=== PATIENT | male | born 1950 | race Caucasian/White ===

== ENCOUNTER 2016-05-23 22:03 | Observation (INO) | payer MEDICARE ==
[2016-05-23] MEDS ORDERED: ONDANSETRON 4 MG/2 ML VIAL IVP STA (23:39)
[2016-05-23] MEDS ORDERED: SODIUM CHLORIDE 0.9% 500 ML IV STA (23:39)
[2016-05-23] MEDS ORDERED: HYDROmorphone 1 MG/ML 1 ML SYRINGE IVP STA ×2 (23:39→23:57)
[2016-05-23] MEDS ORDERED: SODIUM CHLORIDE 0.9% 1,000 ML IV STA (23:39)
--- NOTE | 2016-05-23 23:46 | ED ---
General Adult HPI - General Source: patient, family, RN notes reviewed Mode of arrival: ambulatory Limitations: no limitations <Ta Valdes - Last Filed: 05/24/16 01:03> <Denis Null - Last Filed: 05/24/16 03:20> - General Chief complaint: Abdominal Pain Stated complaint: back & abdominal pain Time Seen by Provider: 05/23/16 23:25 - History of Present Illness Initial comments: Chief complaint history of present illness a 66-year-old patient who is going through hormonal changes. This evening the patient developed discomfort from the left flank to the left lower quadrant abdominal ache. No nausea no vomiting she's had bowel movements and is able to urinate. Recently this patient was diagnosed and treated for prostate cancer she reports it was removed robotically the cancer reportedly did not spread outside. She Is Not Receiving Any Chemo or Radiation Therapy. Patient Denying Nausea or Vomiting Denies Ever Having Had Diverticulitis but She Has Had Kidney Stones in the past (Ta Valdes) - Related Data Home Medications Medication Instructions Recorded Confirmed Aspirin 81 mg PO DAILY 12/02/15 05/23/16 Cholecalciferol [Vitamin D3] 1,000 unit PO DAILY 12/02/15 05/23/16 Estrofem 2 mg PO DAILY 12/02/15 05/23/16 Multivitamins, Thera [Multivitamin] 1 tab PO DAILY 12/02/15 05/23/16 Spiractin 150 mg PO DAILY 12/02/15 05/23/16 Allergies Allergy/AdvReac Type Severity Reaction Status Date / Time No Known Allergies Allergy Verified 05/23/16 23:12 Review of Systems ROS Other: All systems not noted in ROS Statement are negative. <Ta Valdes - Last Filed: 05/24/16 01:03> ROS Other: All systems not noted in ROS Statement are negative. <Denis Null - Last Filed: 05/24/16 03:20> ROS Statement: Those systems with pertinent positive or pertinent negative responses have been documented in the HPI. Review of systems. No visual acuity changes she is hard of hearing no chest pain shortness of breath he has discomfort on the left flank that radiates toward the left lower quadrant area. No change in bowel habits no significant change in appetite no nausea no vomiting. No rash noted on exam. All systems were reviewed. Past medical problems significant for kidney stones 3 or 4 times in the past last time she passed was 5 years ago and this feels somewhat different. Surgeries include as noted above prostate surgery radical removal of the prostate 6 weeks ago because of prostate cancer. Patient is on hormone therapy while transitioning to a female. The patient's also had tonsillectomy when she was a baby. Patient's family history significant for father with prostate cancer mother and sister both breast cancers. Patient denies ALLERGIES nonsmoker nondrinker. (Ta Valdes) Past Medical History Additional Past Medical History / Comment(s): Hormone replacement therapy, Kidney stones History of Any Multi-Drug Resistant Organisms: None Reported Past Surgical History: Prostate Surgery, Tonsillectomy Additional Past Surgical History / Comment(s): prostate cancer-surgery April 11/2016, Past Anesthesia/Blood Transfusion Reactions: No Reported Reaction Past Psychological History: No Psychological Hx Reported Smoking Status: Never smoker Past Alcohol Use History: None Reported Past Drug Use History: None Reported - Past Family History Father Additional Family Medical History / Comment(s): Prostate Cancer <Ta Valdes - Last Filed: 05/24/16 01:03> General Exam Limitations: no limitations <Ta Valdes - Last Filed: 05/24/16 01:03> <Denis Null - Last Filed: 05/24/16 03:20> - General Exam Comments Initial Comments: General: The patient is awake and alert, mild to moderate distress causes discomfort that goes from the left flank toward the left mid to left lower abdomen. No other associated symptoms a problem ongoing for approximately 3 and half hours. Vital signs show temperature 98.2, pulse 101, respiratory rate 18, pulse ox 90 % room air, pressure 134/69. Eye: Pupils are equal, , extra-ocular movements are intact; there is normal conjunctiva bilaterally. No signs of icterus. Ears, nose, mouth and throat: There are moist mucous membranes . Neck: The neck is supple, there is no tenderness . Cardiovascular: There is a regular rate and rhythm. No murmur, rub or gallop is appreciated. Respiratory: Lungs are clear to auscultation, respirations are non-labored, breath sounds are equal. No wheezes, stridor, rales, or rhonchi. Gastrointestinal: Soft, non-distended, tender with deep palpation to the left lower quadrant. There is no rebound or guarding present. Complains of left flank discomfort special and laying down.. Bowel sounds are unremarkable. Back: Left flank discomfort when he lays down flat. Musculoskeletal: Normal ROM, no tenderness, There is no pedal edema. There is no calf tenderness or swelling. Neurological: No complaints of or evidence of any neuro deficits. Skin is warm and dry and no rashes or lesions are noted. No evidence of any rash though early shingles was discussed (Ta Valdes) Medical Decision Making - Lab Data Result diagrams: 05/24/16 00:10 05/24/16 00:10 <Ta Valdes - Last Filed: 05/24/16 01:03> - Lab Data Result diagrams: 05/24/16 00:10 05/24/16 00:10 <Denis Null - Last Filed: 05/24/16 03:20> - Medical Decision Making Medical decision making; patient's white count 13.8 hemoglobin 12.9 and hematocrit 38. Amylase and lipase within normal limits. Potassium is 5.1, BUN 24 creatinine 1.4 the GFR 51. Glucose 155. The patient's urine shows large leuk esterase, 154 reds, greater than 182 whites, and wbc's in clumps plus positive bacteria. The patient was started on Levaquin. X-ray of the pelvis was done and there appears to be a calcification just above the transverse process of L5 on the left side. Patient had CT the abdomen and pelvis confirm diagnosis and evaluate kidney. Final disposition by Dr. Null (Ta Valdes) - Lab Data Lab Results 05/24/16 05/24/16 05/24/16 Range/Units 00:10 00:10 00:10 WBC 13.8 H (3.8-10.6) k/uL RBC 4.11 L (4.30-5.90) m/uL Hgb 12.9 L (13.0-17.5) gm/dL Hct 38.5 L (39.0-53.0) % MCV 93.7 (80.0-100.0) fL MCH 31.4 (25.0-35.0) pg MCHC 33.5 (31.0-37.0) g/dL RDW 12.2 (11.5-15.5) % Plt Count 231 (150-450) k/uL Neutrophils % 85 % Lymphocytes % 7 % Monocytes % 5 % Eosinophils % 1 % Basophils % 1 % Neutrophils # 11.7 H (1.3-7.7) k/uL Lymphocytes # 1.0 (1.0-4.8) k/uL Monocytes # 0.7 (0-1.0) k/uL Eosinophils # 0.2 (0-0.7) k/uL Basophils # 0.1 (0-0.2) k/uL Sodium 136 L (137-145) mmol/L Potassium 5.1 (3.5-5.1) mmol/L Chloride 100 (98-107) mmol/L Carbon Dioxide 22 (22-30) mmol/L Anion Gap 14 mmol/L BUN 24 H (9-20) mg/dL Creatinine 1.40 H (0.66-1.25) mg/dL Est GFR (MDRD) Af Amer >60 (>60 ml/min/1.73 sqM) Est GFR (MDRD) Non-Af 51 (>60 ml/min/1.73 sqM) Glucose 155 H (74-99) mg/dL Plasma Lactic Acid Damion 1.0 (0.7-2.0) mmol/L Calcium 10.2 (8.4-10.2) mg/dL Total Bilirubin 0.4 (0.2-1.3) mg/dL AST 25 (17-59) U/L ALT 34 (21-72) U/L Alkaline Phosphatase 58 (38-126) U/L Total Protein 7.4 (6.3-8.2) g/dL Albumin 4.7 (3.5-5.0) g/dL Amylase 64 (30-110) U/L Lipase 116 (23-300) U/L Urine Color Urine Appearance (Clear) Urine pH (5.0-8.0) Ur Specific Crawford (1.001-1.035) Urine Protein (Negative) Urine Glucose (UA) (Negative) Urine Ketones (Negative) Urine Blood (Negative) Urine Nitrate (Negative) Urine Bilirubin (Negative) Urine Urobilinogen (<2.0) mg/dL Ur Leukocyte Esterase (Negative) Urine RBC (0-5) /hpf Urine WBC (0-5) /hpf Urine WBC Clumps (None) /hpf Urine Bacteria (None) /hpf Hyaline Casts (0-2) /lpf Urine Mucus (None) /hpf Urine Yeast (Budding) (None) /hpf 05/24/16 Range/Units 00:10 WBC (3.8-10.6) k/uL RBC (4.30-5.90) m/uL Hgb (13.0-17.5) gm/dL Hct (39.0-53.0) % MCV (80.0-100.0) fL MCH (25.0-35.0) pg MCHC (31.0-37.0) g/dL RDW (11.5-15.5) % Plt Count (150-450) k/uL Neutrophils % % Lymphocytes % % Monocytes % % Eosinophils % % Basophils % % Neutrophils # (1.3-7.7) k/uL Lymphocytes # (1.0-4.8) k/uL Monocytes # (0-1.0) k/uL Eosinophils # (0-0.7) k/uL Basophils # (0-0.2) k/uL Sodium (137-145) mmol/L Potassium (3.5-5.1) mmol/L Chloride (98-107) mmol/L Carbon Dioxide (22-30) mmol/L Anion Gap mmol/L BUN (9-20) mg/dL Creatinine (0.66-1.25) mg/dL Est GFR (MDRD) Af Amer (>60 ml/min/1.73 sqM) Est GFR (MDRD) Non-Af (>60 ml/min/1.73 sqM) Glucose (74-99) mg/dL Plasma Lactic Acid Damion (0.7-2.0) mmol/L Calcium (8.4-10.2) mg/dL Total Bilirubin (0.2-1.3) mg/dL AST (17-59) U/L ALT (21-72) U/L Alkaline Phosphatase (38-126) U/L Total Protein (6.3-8.2) g/dL Albumin (3.5-5.0) g/dL Amylase (30-110) U/L Lipase (23-300) U/L Urine Color Yellow Urine Appearance Turbid (Clear) Urine pH 5.5 (5.0-8.0) Ur Specific Crawford 1.019 (1.001-1.035) Urine Protein 2+ H (Negative) Urine Glucose (UA) Negative (Negative) Urine Ketones Trace H (Negative) Urine Blood Moderate H (Negative) Urine Nitrate Negative (Negative) Urine Bilirubin Negative (Negative) Urine Urobilinogen <2.0 (<2.0) mg/dL Ur Leukocyte Esterase Large H (Negative) Urine RBC 154 H (0-5) /hpf Urine WBC >182 H (0-5) /hpf Urine WBC Clumps Moderate H (None) /hpf Urine Bacteria Rare H (None) /hpf Hyaline Casts 22 H (0-2) /lpf Urine Mucus Occasional H (None) /hpf Urine Yeast (Budding) Moderate H (None) /hpf Disposition <Ta Valdes - Last Filed: 05/24/16 01:03> <Denis Null - Last Filed: 05/24/16 03:20> Clinical Impression: Abdominal pain, Ureterolithiasis, Urinary tract infection Disposition: ADMITTED IP TO THIS HOSP Condition: Fair
[2016-05-24] MEDS ORDERED: KETOROLAC 30 MG/ML 1 ML VIAL IVP STA (00:37)
[2016-05-24 00:42] LABS: Basophils # (A) 0.1 k/uL (0-0.2); Basophils % (A) 1 %; CH 32.7; CHCM 35.1; Eosinophils # (A) 0.2 k/uL (0-0.7); Eosinophils % (A) 1 %; HCT 38.5 % (39.0-53.0); HDW 2.57; HGB 12.9 gm/dL (13.0-17.5); Luc % (Auto) 1; Lymphocytes % (A) 7 %; MCH 31.4 pg (25.0-35.0); MCHC 33.5 g/dL (31.0-37.0); MCV 93.7 fL (80.0-100.0); Mean Platelet Volume 7.8; Monocytes # (A) 0.7 k/uL (0-1.0); Monocytes % (A) 5 %; Neutrophils # (A) 11.7 k/uL (1.3-7.7); Neutrophils % (A) 85 %; RBC 4.11 m/uL (4.30-5.90); RDW 12.2 % (11.5-15.5); WBC 13.8 k/uL (3.8-10.6); WBC (Perox) 14.68
[2016-05-24 00:48] LABS: Appearance,Urine Turbid (Clear); Bacteria,Urine Rare /hpf; Bilirubin,Urine Negative (Negative); Glucose,Urine (UA) Negative (Negative); Ketones,Urine Trace (Negative); Leukocyte Esterase,Urine Large (Negative); Mucus,Urine Occasional /hpf; Nitrite,Urine Negative (Negative); PH, Urine 5.5 (5.0-8.0); Particle Count 12972; Protein,Urine 2+ (Negative); RBC,Urine 154 /hpf (0-5); Specific Gravity,Urine 1.019 (1.001-1.035); UA Billing (MACRO vs. MICRO) MICRO; Urobilinogen,Urine <2.0 mg/dL (<2.0); WBC,Urine >182 /hpf (0-5)
[2016-05-24 00:54] LABS: ALT 34 U/L (21-72); AST 25 U/L (17-59); Alkaline Phosphatase 58 U/L (38-126); Amylase 64 U/L (30-110); Anion Gap 14 mmol/L; Blood Urea Nitrogen 24 mg/dL (9-20); Calcium 10.2 mg/dL (8.4-10.2); Carbon Dioxide 22 mmol/L (22-30); Chloride 100 mmol/L (98-107); Glucose 155 mg/dL (74-99); Non-African American GFR(MDRD) 51 (>60 ml/min/1.73 sqM); Potassium 5.1 mmol/L (3.5-5.1); Sodium 136 mmol/L (137-145); Total Bilirubin 0.4 mg/dL (0.2-1.3); Total Protein 7.4 g/dL (6.3-8.2)
[2016-05-24] MEDS ORDERED: LEVOFLOXACIN 500MG-D5W PMX 500 MG in DEXTROSE/WATER 1 100ML.BAG IVPB STA (01:03)
--- NOTE | 2016-05-24 02:41 | XR ---
EXAMINATION TYPE: XR abdomen 2V DATE OF EXAM: 05/24/2016 12:58 AM CLINICAL HISTORY: Left flank pain history of prostate carcinoma with surgery. TECHNIQUE: Supine, upright, and left side down lateral decubitus views of the abdomen are obtained. COMPARISON: 12/02/2015 FINDINGS: Scattered gas is seen in non-distended small bowel loops. Gas and fecal material is seen in non-distended colon. There is no visceromegaly, pneumoperitoneum, or abnormal calcification appr eciated. The lung bases are clear and the osseous structures are intact. A catheter is noted superimposing the left abdomen. IMPRESSION: Overall nonobstructive bowel gas pattern. No significant change.
[2016-05-24] MEDS ORDERED: ONDANSETRON 4 MG/2 ML VIAL IVP PRN (03:20)
[2016-05-24] MEDS ORDERED: HYDROmorphone 1 MG/ML 1 ML SYRINGE IV PRN (03:20)
[2016-05-24] MEDS ORDERED: NALOXONE 0.4 MG/ML 1 ML VIAL IV PRN (03:20)
[2016-05-24] MEDS ORDERED: HYDROcodone/APAP 5-325MG 1 EACH TAB PO PRN (03:20)
[2016-05-24] MEDS ORDERED: LEVOFLOXACIN 750MG-D5W PMX 750 MG in DEXTROSE/WATER 1 150ML.BAG IVPB STA (03:25)
[2016-05-24] MEDS ORDERED: SODIUM CHLORIDE 0.9% 1,000 ML IV SCH (03:30)
--- NOTE | 2016-05-24 03:57 | CT ---
EXAMINATION TYPE: CT abdomen pelvis wo con DATE OF EXAM: 05/24/2016 2:08 AM COMPARISON: NONE HISTORY: left flank pain, hx of prostate ca and surgery recently CT DLP: 376.50 mGycm Automated exposure control for dose reduction was used. TECHNIQUE: Helical acquisition of images was performed from the lung bases through the pelvis. No IV or oral contrast was given. FINDINGS: LUNG BASES: No significant abnormality is appreciated. LIVER/GB: No significant abnormality is appreciated. PANCREAS: No significant abnormality is seen. SPLEEN: No significant abnormality is seen. ADRENALS: No significant abnormality is seen. KIDNEYS: There is suggestion of tiny nonobstructing stones in the right kidney. No hydronephrosis is noted on the right side. Left kidney showed mild left hydronephrosis with obstructing 5 mm opaque stone in the mid left ureter at the level of L4-L5 disc space in the axial image 84 and coronal image 47.. RETROPERITONEAL ADENOPATHY: None visualized REPRODUCTIVE ORGANS: Possible postsurgical changes in the prostate gland. URINARY BLADDER: No significant abnormality is seen. PELVIC ADENOPATHY: None visualized. OSSEOUS STRUCTURES: Mild degenerative arthritic changes are noted in the thoracal lumbar spine. BOWEL: Colonic diverticulosis is noted without significant acute diverticulitis. Visualized appendix appears grossly unremarkable. OTHER: There is suggestion of postsurgical changes in the anterior pelvic and abdominal wall as seen in the axial image 97. Small fat-containing left inguinal hernia is noted. IMPRESSION: 1. THERE IS 5 MM OBSTRUCTING STONE IN THE MID LEFT URETER AT THE LEVEL OF L4-L5 WITH MILD LEFT HYDRON EPHROSIS. 2. MILD COLONIC DIVERTICULOSIS. 3. POSTSURGICAL CHANGES IN THE ABDOMEN AND PELVIS PROBABLY RELATED TO PROSTATE GLAND.
[2016-05-24 04:50] VITALS: PULSE 94; RESP 16; BMI 26.9
[2016-05-24 07:43] VITALS: BP 122/68; TEMP 97.6
[2016-05-24] MEDS ORDERED: TAMSULOSIN 0.4 MG CAP.ER.24H PO STA (07:43)
--- NOTE | 2016-05-24 08:27 | HP ---
DATE OF ADMISSION: 05/24/2016 ADMITTING DIAGNOSIS: Left ureteral calculus. Patient is 66-year-old male admitted through the emergency room for treatment of severe left flank pain. Patient's pain began approximately 7:30 on 05/23. It was located in the left flank with radiation to the left lower quadrant. It was associated with nausea and vomiting. The patient rated the pain as a 9/10. He presented to the emergency room for evaluation and a CT scan of the abdomen and pelvis identified a 4.5 to 5 mm diameter partially obstructive calculus in the left ureter at approximately the L4 level. His white blood count was 13,800. BUN 24 and creatinine 1.40. Urinalysis showed greater than 182 white cells, 150 were red cells, but showed only rare bacteria and was negative for nitrite. Due to the persistence of the patient's pain which in the emergency room was tolerable only with Dilaudid, it was elected to admit him for pain control. Patient has a history of urolithiasis and first passed a stone approximately 20 years ago. He said the last time he passed a stone was 10 years ago. All his previous stones have passed spontaneously. Patient's only urinary tract infection in the past occurred following transrectal needle biopsy of the prostate last fall. Patient was discovered to have prostate cancer in 11/2015 and underwent robot-assisted laparoscopic prostatectomy [facility] in early April. He says he has been doing very well since then. He is voiding every 2 to 3 hours during the day and twice at night. He does have some stress incontinence and he currently uses 1 pad daily. 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 He also takes aspirin and vitamin D3. He has no allergies. His only surgery in the past other than radical prostatectomy was tonsillectomy. There is no history of hypertension, diabetes, rheumatic fever, tuberculosis or hepatitis. REVIEW OF SYSTEMS: No history of seizures, asthma, shortness of breath with exertion, palpitations, heart murmur, or rectal bleeding. SOCIAL HISTORY: Patient is a nonsmoker and is . Physical exam reveals a 66-year-old male-appearing individual. Blood pressure 132/75, afebrile. HEENT: No supraclavicular or cervical adenopathy. ABDOMEN: Soft - no hepatosplenomegaly. No flank pain at the present time. GENITALIA: Both testicles are descended. No hernia is noted. IMPRESSION: Left flank pain - secondary to a 5 mm mid left ureteral calculus. The patient says his pain has improved since he was given Toradol early this morning. He currently rates his pain as a 2/10. PLAN: Patient will be started on tamsulosin. If his pain remains minimal, he will be discharged later today in hopes that he will be able to pass his stone spontaneously as an outpatient. PAIGE
[2016-05-24] MEDS ORDERED: ASPIRIN 81 MG CHEW PO SCH (09:00)
[2016-05-24] MEDS ORDERED: CHOLECALCIFEROL 1,000 UNIT TAB PO SCH (09:00)
[2016-05-24] MEDS ORDERED: ESTRADIOL 2 MG PO SCH (09:00)
[2016-05-24] MEDS ORDERED: MULTIVITAMINS, THERA 1 EACH TAB PO SCH (09:00)
[2016-05-24] MEDS ORDERED: [UNRECOGNIZED DRUG - OTHER] PO SCH (09:00)
[2016-05-24] MEDS ORDERED: FAMOTIDINE 20 MG TAB PO SCH (09:00)
== END 2016-05-24 11:10 | disposition home or self-care (01) ==
LOC: EC 22:03 → 3SUR 05-24 03:20
PROVIDERS: ADMIT Urology; ATTEND Urology
DX: N20.1 Calculus of ureter (principal); N39.3 Stress incontinence (female) (male); Z85.46 Personal history of malignant neoplasm of prostate; Z79.82 Long term (current) use of aspirin; Z79.3 Long term (current) use of hormonal contraceptives; Z80.42 Family history of malignant neoplasm of prostate
CPT/HCPCS: 36415; 80053; 82150; 83605; 83690; 85025; 81001; 87086; 74020; 74176; 99285; 96365; 96375 ×3; 96361 ×3; G0378; J2405; J1956; J1885; J1170

== ENCOUNTER 2016-05-26 22:32 | Inpatient (IN) | payer MEDICARE ==
[2016-05-26] MEDS ORDERED: SODIUM CHLORIDE 0.9% 2,000 ML IV STA (23:06)
[2016-05-26] MEDS ORDERED: SODIUM CHLORIDE 0.9% 1,000 ML IV STA (23:06)
[2016-05-26] MEDS ORDERED: ACETAMINOPHEN TAB 325 MG TAB PO STA (23:26)
[2016-05-26 23:28] LABS: Basophils % (A) 0 %; CH 32.5; CHCM 35.2; Eosinophils # (A) 0.1 k/uL (0-0.7); Eosinophils % (A) 0 %; HCT 35.2 % (39.0-53.0); HDW 2.47; HGB 12.2 gm/dL (13.0-17.5); Luc # (Auto) 0.09; Luc % (Auto) 1; Lymphocytes # (A) 0.5 k/uL (1.0-4.8); Lymphocytes % (A) 4 %; MCHC 34.5 g/dL (31.0-37.0); MCV 92.6 fL (80.0-100.0); Mean Platelet Volume 7.6; Monocytes # (A) 0.8 k/uL (0-1.0); Monocytes % (A) 7 %; Neutrophils # (A) 10.2 k/uL (1.3-7.7); Neutrophils % (A) 88 %; WBC 11.6 k/uL (3.8-10.6); WBC (Perox) 11.92
[2016-05-26 23:38] LABS: INR 1.2 (<1.1); Partial Thromboplastin Time 27.6 sec (22.0-30.0); Prothrombin Time 11.6 sec (9.0-12.0)
[2016-05-26 23:39] LABS: Calcium 9.7 mg/dL (8.4-10.2); Magnesium 1.9 mg/dL (1.6-2.3); Total Bilirubin 0.7 mg/dL (0.2-1.3)
--- NOTE | 2016-05-26 23:59 | XR ---
EXAMINATION TYPE: XR KUB DATE OF EXAM: 05/26/2016 11:37 PM CLINICAL HISTORY: Left flank pain, history of stones. TECHNIQUE: Single supine KUB image of the abdomen is obtained. COMPARISON: 05/24/[address] scan of abdomen and pelvis 05/24/2016. FINDINGS: Mild gaseous distention of bowel loops is noted in the abdomen with multiple air-fluid levels and is suggestion of mild ileus. There is no visceromegaly, pneumoperitoneum, or abnormal calcification appreciated. The lung bases are clear and the osseous structures are intact. Previously described 5 mm obstructing stone in the mid left ureter on the CT scan is not well demonst rated in this radiograph. IMPRESSION: 1. Suggestion of mild ileus in the abdomen. 2. No significant bowel obstruction. 3. Previously demonstrated 5 mm obstructing stone on the CT scan is not well demonstrated in this rad iograph.
--- NOTE | 2016-05-27 00:36 | US ---
EXAMINATION TYPE: US renals and bladder DATE OF EXAM: 05/26/2016 11:59 PM COMPARISON: CT 2 days prior CLINICAL HISTORY: Left flank pain. Concern for septic stone. EXAM MEASUREMENTS: Right Kidney: 9.8 x 4.7 x 4.3 cm Left Kidney: 10.2 x 5.6 x 5.4 cm TECHNOLOGIST IMPRESSION: wnl Right Kidney: Lower pole cyst measuring 2.4 x 2.7 x 2.5cm, 2 echogenic foci seen probable stones hyacinth uring 1.) 0.5 x 0.5 x 0.5cm 2.) 0.5 x 0.3 x 0.7cm Left Kidney: mild hydro, echogenic foci, probable stone measuring 0.3 x 0.3 x 0.2cm Bladder: Not fully distended IMPRESSION: 1. There is mild left-sided hydronephrosis. Patient probably has persistent obstructing left kidney/u reter stone since previous CT 05/24/2016. A clinical correlation and follow-up is recommended.. 2. Benign-appearing cyst in the right kidney. 3. Possible tiny bilateral nonobstructing stones. 4. Limited evaluation of nondistended urinary bladder.
[2016-05-27] MEDS ORDERED: cefTRIAXone 2,000 MG in SODIUM CHLORIDE 0.9% 100 ML IVPB STA (00:47)
[2016-05-27] MEDS ORDERED: GENTAMICIN 110 MG in SODIUM CHLORIDE 0.9% 100 ML IVPB ONE (00:47)
[2016-05-27 00:51] LABS: Appearance,Urine Clear (Clear); Bilirubin,Urine Negative (Negative); Glucose,Urine (UA) Negative (Negative); Ketones,Urine 2+ (Negative); Leukocyte Esterase,Urine Large (Negative); Mucus,Urine Rare /hpf; Nitrite,Urine Negative (Negative); Particle Count 3458; Protein,Urine Negative (Negative); RBC,Urine 20 /hpf (0-5); Specific Gravity,Urine 1.006 (1.001-1.035); Squamous Epithelial Cell,Urine <1 /hpf (0-4); UA Billing (MACRO vs. MICRO) MICRO; Urobilinogen,Urine <2.0 mg/dL (<2.0); WBC,Urine 73 /hpf (0-5)
[2016-05-27] MEDS ORDERED: NALOXONE 0.4 MG/ML 1 ML VIAL IV PRN (01:05)
[2016-05-27] MEDS ORDERED: ACETAMINOPHEN TAB 325 MG TAB PO PRN (01:05)
--- NOTE | 2016-05-27 01:05 | ED ---
General Adult HPI - General Chief complaint: Abdominal Pain Stated complaint: kidney stone Time Seen by Provider: 05/26/16 22:52 Source: patient Mode of arrival: ambulatory Limitations: no limitations - History of Present Illness Initial comments: The patient is a 66-year-old male who presents to ED with a chief complaint of left-sided flank pain, fever. Patient states that the symptoms of the present over the course of the past 24 hours. Patient states that he was admitted on May 22 for a left-sided ureteral stone. Patient was treated with pain control medications at that point in time and discharged home. He notes that he had improvement of his pain until yesterday. Patient also notes that he's been having a bloated sensation throughout his abdomen. He has tried taking Dulcolax suppository without improvement of the symptoms. Patient does note that he's felt very bloated overall. The patient has a hx of multiple episodes of ureterolithiasis stretching over the past 20 years. He follows with Dr[address] Martinez as his Urologist. Severity scale (1-10): 0 - Related Data Home Medications Medication Instructions Recorded Confirmed Aspirin 81 mg PO DAILY 12/02/15 05/26/16 Cholecalciferol [Vitamin D3] 1,000 unit PO DAILY 12/02/15 05/26/16 Estradiol [Estradiol] 4 mg PO QAM 05/24/16 05/26/16 Multivit-Min/Fe Fum/FA/Vit K 1 cap PO DAILY 05/24/16 05/26/16 [Women's Multivatimin] Spironolactone [Spironolactone] 50 mg PO HS 05/24/16 05/26/16 Spironolactone [Spironolactone] 100 mg PO QAM 05/24/16 05/26/16 Previous Rx's Medication Instructions Recorded Hydrocodone/Acetaminophen [[place] 1 - 2 each PO Q4HR PRN #30 tab 05/24/16 5-325] Ketorolac [Toradol] 10 mg PO Q6HR PRN #20 tab 05/24/16 Tamsulosin [Flomax] 0.4 mg PO DAILY #30 cap 05/24/16 Allergies Allergy/AdvReac Type Severity Reaction Status Date / Time No Known Allergies Allergy Verified 05/26/16 22:38 Review of Systems ROS Statement: Those systems with pertinent positive or pertinent negative responses have been documented in the HPI. ROS Other: All systems not noted in ROS Statement are negative. Constitutional: Reports: fever, chills. Denies: weakness ENT: Denies: ear pain, throat pain Respiratory: Denies: cough, dyspnea Cardiovascular: Denies: chest pain, palpitations Endocrine: Reports: fatigue Gastrointestinal: Reports: abdominal pain, nausea, constipation, other (Bloating ). Denies: vomiting, diarrhea Genitourinary: Reports: urgency, dysuria. Denies: frequency, hematuria Musculoskeletal: Denies: back pain Skin: Denies: rash Neurological: Denies: headache, weakness Psychiatric: Denies: anxiety, depression Past Medical History Additional Past Medical History / Comment(s): Hormone replacement therapy, Kidney stones History of Any Multi-Drug Resistant Organisms: None Reported Past Surgical History: Prostate Surgery, Tonsillectomy Additional Past Surgical History / Comment(s): prostate cancer-surgery April 11/2016, Past Anesthesia/Blood Transfusion Reactions: No Reported Reaction Past Psychological History: No Psychological Hx Reported Smoking Status: Never smoker Past Alcohol Use History: None Reported Past Drug Use History: None Reported - Past Family History Father Additional Family Medical History / Comment(s): Prostate Cancer General Exam Limitations: no limitations General appearance: alert, in no apparent distress Head exam: Present: atraumatic, normocephalic Eye exam: Present: normal appearance, other (Patient wears glasses) Pupils: Present: normal accommodation ENT exam: Present: normal exam, mucous membranes dry Neck exam: Present: normal inspection, full ROM Respiratory exam: Present: normal lung sounds bilaterally. Absent: respiratory distress, wheezes, rales, rhonchi, stridor Cardiovascular Exam: Present: normal rhythm, tachycardia, normal heart sounds GI/Abdominal exam: Present: soft, tenderness (left CVA). Absent: distended, guarding, rebound, rigid Extremities exam: Present: normal inspection, full ROM Back exam: Present: normal inspection Neurological exam: Present: alert, oriented X3 Psychiatric exam: Present: normal affect, normal mood Skin exam: Present: warm, dry, intact Course Vital Signs 05/26/16 05/26/16 05/26/16 22:38 23:08 23:24 Temperature 101.8 F H 98.9 F Pulse Rate 130 H Pulse Rate [ 111 H 98 Refuge Manager ] Respiratory 20 20 20 Rate Blood Pressure 124/75 Blood Pressure 125/70 129/69 [Sitting] O2 Sat by Pulse 98 97 Oximetry 05/27/16 05/27/16 05/27/16 00:00 00:24 01:31 Temperature 99.3 F Pulse Rate 96 91 Pulse Rate [ 95 Refuge Manager ] Respiratory 18 20 16 Rate Blood Pressure 121/58 114/56 Blood Pressure 122/67 [Sitting] O2 Sat by Pulse 96 97 98 Oximetry Medical Decision Making - Medical Decision Making The patient is a 66-year-old male who presents to ED with a chief complaint of left-sided flank pain. Patient also noted to have fever. Patient's temp of 101.8. Patient also noted be tachycardic upon arrival. Given recent diagnosis of left-sided ureteral stone, I'm obviously concerned for possibility of septic stone. Bolus patient with 2 L IV fluids. Check CBC, BMP, mag. Check lactic acid as well as blood cultures. Treat patient with broad-spectrum antibiotics including Rocephin and gentamicin. Given the patient has had recent CT, will check ultrasound renal as well as KUB. Patient does not require any pain medications at this point in time. 1:[address] Terry, who agrees with plan of admission with antibiotics. Updated patient of overall findings. He is amenable with plan of admission for further management of symptoms. HR noted to be improved overall - no longer tachycardic. Temp is also improved - no longer febrile. - Lab Data Result diagrams: 05/26/16 23:15 05/26/16 23:15 Lab Results 05/26/16 05/26/16 05/26/16 Range/Units 23:15 23:15 23:15 WBC 11.6 H (3.8-10.6) k/uL RBC 3.80 L (4.30-5.90) m/uL Hgb 12.2 L (13.0-17.5) gm/dL Hct 35.2 L (39.0-53.0) % MCV 92.6 (80.0-100.0) fL MCH 32.0 (25.0-35.0) pg MCHC 34.5 (31.0-37.0) g/dL RDW 12.0 (11.5-15.5) % Plt Count 208 (150-450) k/uL Neutrophils % 88 % Lymphocytes % 4 % Monocytes % 7 % Eosinophils % 0 % Basophils % 0 % Neutrophils # 10.2 H (1.3-7.7) k/uL Lymphocytes # 0.5 L (1.0-4.8) k/uL Monocytes # 0.8 (0-1.0) k/uL Eosinophils # 0.1 (0-0.7) k/uL Basophils # 0.0 (0-0.2) k/uL PT 11.6 (9.0-12.0) sec INR 1.2 (<1.1) APTT 27.6 (22.0-30.0) sec Sodium 135 L (137-145) mmol/L Potassium 5.0 (3.5-5.1) mmol/L Chloride 99 (98-107) mmol/L Carbon Dioxide 22 (22-30) mmol/L Anion Gap 14 mmol/L BUN 20 (9-20) mg/dL Creatinine 1.50 H (0.66-1.25) mg/dL Est GFR (MDRD) Af Amer 57 (>60 ml/min/1.73 sqM) Est GFR (MDRD) Non-Af 47 (>60 ml/min/1.73 sqM) Glucose 133 H (74-99) mg/dL Plasma Lactic Acid [place] (0.7-2.0) mmol/L Calcium 9.7 (8.4-10.2) mg/dL Magnesium 1.9 (1.6-2.3) mg/dL Total Bilirubin 0.7 (0.2-1.3) mg/dL AST 23 (17-59) U/L ALT 34 (21-72) U/L Alkaline Phosphatase 64 (38-126) U/L Total Protein 7.0 (6.3-8.2) g/dL Albumin 4.3 (3.5-5.0) g/dL Urine Color Urine Appearance (Clear) Urine pH (5.0-8.0) Ur Specific [place] (1.001-1.035) Urine Protein (Negative) Urine Glucose (UA) (Negative) Urine Ketones (Negative) Urine Blood (Negative) Urine Nitrate (Negative) Urine Bilirubin (Negative) Urine Urobilinogen (<2.0) mg/dL Ur Leukocyte Esterase (Negative) Urine RBC (0-5) /hpf Urine WBC (0-5) /hpf Urine WBC Clumps (None) /hpf Ur Squamous Epith Cells (0-4) /hpf Hyaline Casts (0-2) /lpf Urine Mucus (None) /hpf 05/26/16 05/27/16 Range/Units 23:15 00:38 WBC (3.8-10.6) k/uL RBC (4.30-5.90) m/uL Hgb (13.0-17.5) gm/dL Hct (39.0-53.0) % MCV (80.0-100.0) fL MCH (25.0-35.0) pg MCHC (31.0-37.0) g/dL RDW (11.5-15.5) % Plt Count (150-450) k/uL Neutrophils % % Lymphocytes % % Monocytes % % Eosinophils % % Basophils % % Neutrophils # (1.3-7.7) k/uL Lymphocytes # (1.0-4.8) k/uL Monocytes # (0-1.0) k/uL Eosinophils # (0-0.7) k/uL Basophils # (0-0.2) k/uL PT (9.0-12.0) sec INR (<1.1) APTT (22.0-30.0) sec Sodium (137-145) mmol/L Potassium (3.5-5.1) mmol/L Chloride (98-107) mmol/L Carbon Dioxide (22-30) mmol/L Anion Gap mmol/L BUN (9-20) mg/dL Creatinine (0.66-1.25) mg/dL Est GFR (MDRD) Af Amer (>60 ml/min/1.73 sqM) Est GFR (MDRD) Non-Af (>60 ml/min/1.73 sqM) Glucose (74-99) mg/dL Plasma Lactic Acid [place] 0.6 L (0.7-2.0) mmol/L Calcium (8.4-10.2) mg/dL Magnesium (1.6-2.3) mg/dL Total Bilirubin (0.2-1.3) mg/dL AST (17-59) U/L ALT (21-72) U/L Alkaline Phosphatase (38-126) U/L Total Protein (6.3-8.2) g/dL Albumin (3.5-5.0) g/dL Urine Color Yellow Urine Appearance Clear (Clear) Urine pH 5.0 (5.0-8.0) Ur Specific [place] 1.006 (1.001-1.035) Urine Protein Negative (Negative) Urine Glucose (UA) Negative (Negative) Urine Ketones 2+ H (Negative) Urine Blood Moderate H (Negative) Urine Nitrate Negative (Negative) Urine Bilirubin Negative (Negative) Urine Urobilinogen <2.0 (<2.0) mg/dL Ur Leukocyte Esterase Large H (Negative) Urine RBC 20 H (0-5) /hpf Urine WBC 73 H (0-5) /hpf Urine WBC Clumps Rare H (None) /hpf Ur Squamous Epith Cells <1 (0-4) /hpf Hyaline Casts 1 (0-2) /lpf Urine Mucus Rare H (None) /hpf Disposition Clinical Impression: Ureterolithiasis, UTI (urinary tract infection), Sepsis Disposition: ADMITTED IP TO THIS [facility] Condition: Good Referrals: Shameka Chaney DO [Primary Care Provider] - 1-2 days Time of Disposition: 01:03 Decision to Admit Reason: Admit from EC Decision Date: 05/27/16 Decision Time: 01:04
[2016-05-27] MEDS ORDERED: KETOROLAC 30 MG/ML 1 ML VIAL IVP PRN (02:30)
[2016-05-27] MEDS: MORPHINE SULFATE 2 MG/ML SYRINGE IVP PRN ×2 (02:38→05:43)
--- NOTE | 2016-05-27 09:22 | P.GSHP ---
History of Present Illness H&P Date: 05/27/16 The patient is a 66-year-old with a history of kidney stones. The patient was in the hospital [address] Martinez with a left ureteral calculus. The patient was discharged home only to return to the emergency room yesterday with more pain and fever and chills. The temperature last night was 101.8. And 102.3 this morning. THe urine is infected. The KUB shows a stone in the region of the mid ureter. With the infected urine, no lower urinary tract symptoms and the stone with hydronephrosis I will set the patient up for cystoscopy and placement of a double-J catheter to relieve the obstruction and drain the infected urine. - Constitutional Constitutional: Denies chills, Denies fever Past Medical History Additional Past Medical History / Comment(s): Hormone replacement therapy, Kidney stones History of Any Multi-Drug Resistant Organisms: None Reported Past Surgical History: Prostate Surgery, Tonsillectomy Additional Past Surgical History / Comment(s): prostate cancer-surgery April 11/2016, Past Anesthesia/Blood Transfusion Reactions: No Reported Reaction Past Psychological History: No Psychological Hx Reported Smoking Status: Never smoker Past Alcohol Use History: None Reported Past Drug Use History: None Reported - Past Family History Father Additional Family Medical History / Comment(s): Prostate Cancer Medications and Allergies Home Medications Medication Instructions Recorded Confirmed Type Aspirin 81 mg PO DAILY 12/02/15 05/26/16 History Cholecalciferol [Vitamin D3] 1,000 unit PO DAILY 12/02/15 05/26/16 History Estradiol [Estradiol] 4 mg PO QAM 05/24/16 05/26/16 History Multivit-Min/Fe Fum/FA/Vit K 1 cap PO DAILY 05/24/16 05/26/16 History [Women's Multivatimin] Spironolactone [Spironolactone] 50 mg PO HS 05/24/16 05/26/16 History Spironolactone [Spironolactone] 100 mg PO QAM 05/24/16 05/26/16 History Allergies Allergy/AdvReac Type Severity Reaction Status Date / Time No Known Allergies Allergy Verified 05/26/16 22:38 Surgical - Exam Vital Signs Temp Pulse Resp BP Pulse Ox 101.8 F H 130 H 20 124/75 98 05/26/16 22:38 05/26/16 22:38 05/26/16 22:38 05/26/16 22:38 05/26/16 22:38 - General well developed, well nourished, no distress - Eyes PERRL - ENT no hearing loss - Neck no masses - Respiratory normal expansion, normal respiratory effort - Cardiovascular Rhythm: regular - Abdomen Abdomen: soft, tender - Integumentary no rash, no growths - Neurologic normal coordination, normal sensation - Musculoskeletal normal posture - Psychiatric oriented to time, oriented to person, oriented to place Results - Labs 05/26/16 23:15 05/26/16 23:15 Assessment and Plan Plan: Impression: Left ureteral calculus with obstruction, urinary tract infection with sepsis, pyonephrosis. Recommendations this patient will have a double-J catheter placed this morning to relieve the obstruction and drain the infected urine. At a later date patient will be set up for cystoscopy ureteroscopy and stone manipulation.
[2016-05-27] MEDS ORDERED: fentaNYL (PF) 50 MCG/ML 2 ML AMP ONE (10:26)
[2016-05-27] MEDS ORDERED: MIDAZOLAM 2 MG/2 ML VIAL ONE (10:26)
[2016-05-27] MEDS ORDERED: LIDOCAINE 1% INJ 10MG/ML (20 ML MDV) ONE (10:26)
[2016-05-27] MEDS ORDERED: LACTATED RINGERS 1,000 ML IV ONE (10:26)
[2016-05-27] MEDS ORDERED: DEXAMETHASONE SOD PHOS (MDV) 100 MG/10 ML VIAL ONE (10:26)
[2016-05-27] MEDS ORDERED: SUCCINYLCHOLINE CHLORIDE 100 MG/5 ML SYR IV ONE (10:26)
[2016-05-27] MEDS ORDERED: PROPOFOL 10 MG/ML 20 ML VIAL IV ONE (10:26)
[2016-05-27] MEDS ORDERED: ONDANSETRON 4 MG/2 ML VIAL ONE (10:26)
[2016-05-27] MEDS ORDERED: HYDROcodone/APAP 5-325MG 1 EACH TAB PO PRN (11:12)
--- NOTE | 2016-05-27 11:19 | P.OP ---
Date of Procedure: 05/27/16 Preoperative Diagnosis: Left ureteral calculus, left ureteral obstruction with pyelonephrosis, urinary tract infection with sepsis Postoperative Diagnosis: Same Procedure(s) Performed: Cystoscopy, left ureteroscopy, placement of 626 double-J catheter Anesthesia: LUCÍA Surgeon: Ron Terry Estimated Blood Loss (ml): 0 Pathology: none sent Condition: stable Disposition: PACU Indications for Procedure: Patient is a 66-year-old individual with a history of ureteral stones. A 5 mm midureteral stone was recently identified. The patient was in the hospital for this and discharged home. The patient presented back to the emergency room last night with fever and chills. The stone was still present in the mid ureter with hydronephrosis. The patient still had fever this morning. Urine is infected. The patient comes for placement of a double-J catheter to relieve the obstruction and help with the treatment of the infected urine. Description of Procedure: The patient is brought to the operating suite and given a general anesthesia. The patient's placed lithotomy position with a sterile prep and drape. Cystoscopy a Foroblique lens and 22-Setswana sheath identifies a normal anterior urethra. The prostate is previously been removed surgically for prostate cancer. Upon entering the bladder there is edema and some of the stitches from the radical prostatectomy emanating from the bladder neck. The trigone is somewhat obscured due to this but after very careful and diligent search identified first the right and then the left ureteral orifice. The angle was extremely difficult and I cannot pass an 035 wire through the orifice with the cystoscope. I removed the cystoscope and passed the ureteroscope into the distal ureter. Fortunately I am able then to be able to pass an 035 wire up the ureter into the kidney. I removed the ureteroscope and backloaded the wire onto the cystoscope. Then over the wire I passed a 6 x 26 double-J catheter that coils in the renal pelvis and in the bladder. the bladder is drained and the cystoscope was removed. the patient is awakened and returned recovery room good condition. The patient will stay in the hospital overnight and then probably be discharged home tomorrow. The patient will have a formal ureteroscopy and stone removal at a later date.
--- NOTE | 2016-05-27 11:34 | FL ---
Fluoroscopy INDICATION: Pain FINDINGS: Fluoroscopy time: 28 seconds. Images obtained: 1. IMPRESSIONS: 1. Documentation of fluoroscopy.
[2016-05-27] MEDS ORDERED: ETODOLAC 400 MG TAB PO PRN (13:17)
[2016-05-27] MEDS: LEVOFLOXACIN 500 MG TAB PO SCH (14:46)
[2016-05-27] MEDS ORDERED: SPIRONOLACTONE 25 MG TAB PO SCH (21:00)
[2016-05-28 07:59] VITALS: BP 112/65; PULSE 90; RESP 16; TEMP 97.2
[2016-05-28] MEDS ORDERED: CHOLECALCIFEROL 1,000 UNIT TAB PO SCH (09:00)
[2016-05-28] MEDS ORDERED: MULTIVITAMINS, THERA 1 EACH TAB PO SCH (09:00)
[2016-05-28] MEDS ORDERED: SPIRONOLACTONE 25 MG TAB PO SCH (09:00)
[2016-05-28] MEDS ORDERED: ESTRADIOL 1 MG TAB PO SCH (09:00)
[2016-05-28] MEDS ORDERED: ASPIRIN 81 MG CHEW PO SCH (09:00)
[2016-05-28 09:06] LABS: Basophils % (A) 0 %; CH 31.8; CHCM 32.8; Eosinophils % (A) 0 %; HCT 32.8 % (39.0-53.0); HGB 10.7 gm/dL (13.0-17.5); Luc # (Auto) 0.07; Luc % (Auto) 1; Lymphocytes # (A) 1.1 k/uL (1.0-4.8); Lymphocytes % (A) 14 %; MCH 31.7 pg (25.0-35.0); MCHC 32.5 g/dL (31.0-37.0); MCV 97.5 fL (80.0-100.0); Monocytes # (A) 0.4 k/uL (0-1.0); Monocytes % (A) 4 %; Neutrophils # (A) 6.7 k/uL (1.3-7.7); Neutrophils % (A) 81 %; RBC 3.36 m/uL (4.30-5.90); RDW 12.3 % (11.5-15.5); WBC 8.3 k/uL (3.8-10.6); WBC (Perox) 9.19
[2016-05-28 09:29] LABS: Anion Gap 9 mmol/L; Blood Urea Nitrogen 18 mg/dL (9-20); Calcium 8.7 mg/dL (8.4-10.2); Carbon Dioxide 24 mmol/L (22-30); Chloride 107 mmol/L (98-107); Glucose 145 mg/dL (74-99); Non-African American GFR(MDRD) 58 (>60 ml/min/1.73 sqM); Potassium 4.4 mmol/L (3.5-5.1); Sodium 140 mmol/L (137-145)
--- NOTE | 2016-05-28 12:43 | P.PN ---
Progress Note - Text The patient is afebrile and no longer has left flank pain since the left JJ catheter was placed. He is tolerating a regular diet and voiding clear urine. Urine culture is pending. He will be discharged on Levaquin 500 mg daily and will be contacted when the final culture is back. If he continues to do well then left ureteroscopy will be set up later this month.
[2016-05-28] MEDS: LEVOFLOXACIN 500 MG TAB PO SCH (12:44)
== END 2016-05-28 14:28 | disposition home or self-care (01) | DRG 872 ==
LOC: EC 22:32 → 4MS4W 05-27 01:05
PROVIDERS: ADMIT Urology; ATTEND Urology
PROC: 0T778DZ Dilation of Left Ureter with Intraluminal Device, Via Natural or Artificial Opening Endoscopic (ICD-10-PCS; principal; 2016-05-27 10:30)
DX: A41.9 Sepsis, unspecified organism (principal); N13.6 Pyonephrosis; Z85.46 Personal history of malignant neoplasm of prostate; Z87.442 Personal history of urinary calculi; Z79.82 Long term (current) use of aspirin; Z79.899 Other long term (current) drug therapy
CPT/HCPCS: 36415; 74000; 74020; 74176; 76770; 80048; 80053; 80299; 81001; 82150; 83605; 83690; 83735; 85025; 85610; 85730; 87040; 87086; 94760; 96361; 96365; 96375; 99285

== ENCOUNTER 2016-05-29 01:19 | Emergency (ER) | payer MEDICARE ==
[2016-05-29 01:28] VITALS: RESP 18
[2016-05-29] MEDS ORDERED: SODIUM CHLORIDE 0.9% 1,000 ML IV STA (01:39)
--- NOTE | 2016-05-29 01:43 | ED ---
General Adult HPI - General Chief complaint: Allergic Reaction Stated complaint: poss med reaction Time Seen by Provider: 05/29/16 01:31 Source: patient, RN notes reviewed Mode of arrival: ambulatory Limitations: no limitations - History of Present Illness Initial comments: 66-year-old male presents to the emergency department with a chief complaint of body cramps. The patient states that a stent was placed yesterday in the left ureter. Patient was started on Levaquin. Patient states now she is having muscle cramping and aching. Patient states mostly in the legs. Patient denies any changes in urination any fever chills with this. Patient was concerned due to the symptoms so she thought that she should be reevaluated.Patient denies any recent fever, chills, shortness of breath, chest pain, back pain, abdominal pain, nausea vomiting, numbness or tingling, dysuria or hematuria, constipation or diarrhea, headaches or visual changes, or any other current symptoms. - Related Data Home Medications Medication Instructions Recorded Confirmed Aspirin 81 mg PO DAILY 12/02/15 05/27/16 Cholecalciferol [Vitamin D3] 1,000 unit PO DAILY 12/02/15 05/27/16 Estradiol [Estradiol] 4 mg PO QAM 05/24/16 05/27/16 Multivit-Min/Fe Fum/FA/Vit K 1 cap PO DAILY 05/24/16 05/27/16 [Women's Multivatimin] Spironolactone [Spironolactone] 50 mg PO HS 05/24/16 05/27/16 Spironolactone [Spironolactone] 100 mg PO QAM 05/24/16 05/27/16 Hydrocodone/Acetaminophen [[place] 1 - 2 tab PO Q4HR PRN 05/27/16 05/27/16 5-325] Previous Rx's Medication Instructions Recorded Ketorolac [Toradol] 10 mg PO Q6HR PRN #20 tab 05/24/16 Tamsulosin [Flomax] 0.4 mg PO DAILY #30 cap 05/24/16 Levofloxacin [Levaquin] 500 mg PO DAILY #10 tab 05/28/16 Sulfamethox-Tmp 800-160Mg [Bactrim 1 each PO Q12HR #14 tab 05/29/16 DS 800-160 mg] Allergies Allergy/AdvReac Type Severity Reaction Status Date / Time No Known Allergies Allergy Verified 05/29/16 01:28 Review of Systems ROS Statement: Those systems with pertinent positive or pertinent negative responses have been documented in the HPI. ROS Other: All systems not noted in ROS Statement are negative. Past Medical History Additional Past Medical History / Comment(s): Hormone replacement therapy, Kidney stones History of Any Multi-Drug Resistant Organisms: None Reported Past Surgical History: Prostate Surgery, Tonsillectomy Additional Past Surgical History / Comment(s): prostate cancer-surgery April 11/2016, Past Anesthesia/Blood Transfusion Reactions: No Reported Reaction Past Psychological History: No Psychological Hx Reported Smoking Status: Never smoker Past Alcohol Use History: None Reported Past Drug Use History: None Reported - Past Family History Father Additional Family Medical History / Comment(s): Prostate Cancer General Exam Limitations: no limitations General appearance: alert, in no apparent distress ENT exam: Present: normal exam Neck exam: Present: normal inspection. Absent: tenderness, meningismus, lymphadenopathy Respiratory exam: Present: normal lung sounds bilaterally. Absent: respiratory distress, wheezes, rales, rhonchi, stridor Cardiovascular Exam: Present: regular rate, normal rhythm, normal heart sounds. Absent: systolic murmur, diastolic murmur, rubs, gallop, clicks Back exam: Present: normal inspection Neurological exam: Present: alert, oriented X3, CN II-XII intact. Absent: motor sensory deficit Psychiatric exam: Present: normal affect, normal mood Skin exam: Present: warm, dry, intact, normal color. Absent: rash Course Vital Signs 05/29/16 01:26 Temperature 98.6 F Pulse Rate 99 Respiratory 18 Rate Blood Pressure 145/89 O2 Sat by Pulse 99 Oximetry Medical Decision Making - Medical Decision Making 66-year-old male presents to the emergency department with a chief complaint of body cramping after starting Levaquin. This time lab work was reviewed that does show normal a mildly elevated creatinine however stable compared to previous creatinine. Cultures reviewed and does not show any gross. Some we will start patient on Bactrim however. We did discuss following up with the doctor and return parameters. We discussed outcome. The patient stated that he understood all questions have been answered. They will be discharged home. - Lab Data Result diagrams: 05/29/16 01:50 05/29/16 01:50 Lab Results 05/29/16 05/29/1605/29/17 Range/Units 01:50 01:50 01:55 WBC 14.3 H (3.8-10.6) k/uL RBC 3.43 L (4.30-5.90) m/uL Hgb 11.2 L (13.0-17.5) gm/dL Hct 32.4 L (39.0-53.0) % MCV 94.4 (80.0-100.0) fL MCH 32.5 (25.0-35.0) pg MCHC 34.4 (31.0-37.0) g/dL RDW 12.4 (11.5-15.5) % Plt Count 246 (150-450) k/uL Neutrophils % 78 % Lymphocytes % 13 % Monocytes % 6 % Eosinophils % 2 % Basophils % 0 % Neutrophils # 11.1 H (1.3-7.7) k/uL Lymphocytes # 1.9 (1.0-4.8) k/uL Monocytes # 0.8 (0-1.0) k/uL Eosinophils # 0.2 (0-0.7) k/uL Basophils # 0.1 (0-0.2) k/uL Sodium 139 (137-145) mmol/L Potassium 4.4 (3.5-5.1) mmol/L Chloride 107 (98-107) mmol/L Carbon Dioxide 22 (22-30) mmol/L Anion Gap 10 mmol/L BUN 23 H (9-20) mg/dL Creatinine 1.30 H (0.66-1.25) mg/dL Est GFR (MDRD) Af Amer >60 (>60 ml/min/1.73 sqM) Est GFR (MDRD) Non-Af 55 (>60 ml/min/1.73 sqM) Glucose 110 H (74-99) mg/dL Calcium 8.4 (8.4-10.2) mg/dL Total Bilirubin 0.4 (0.2-1.3) mg/dL AST 23 (17-59) U/L ALT 37 (21-72) U/L Alkaline Phosphatase 52 (38-126) U/L Creatine Kinase 64 (55-170) U/L Total Protein 6.3 (6.3-8.2) g/dL Albumin 3.8 (3.5-5.0) g/dL Urine Color Yellow Urine Appearance Cloudy (Clear) Urine pH 5.5 (5.0-8.0) Ur Specific [place] 1.011 (1.001-1.035) Urine Protein 1+ H (Negative) Urine Glucose (UA) Negative (Negative) Urine Ketones Negative (Negative) Urine Blood Large H (Negative) Urine Nitrate Negative (Negative) Urine Bilirubin Negative (Negative) Urine Urobilinogen <2.0 (<2.0) mg/dL Ur Leukocyte Esterase Moderate H (Negative) Urine RBC >182 H (0-5) /hpf Urine WBC 77 H (0-5) /hpf Urine Mucus Rare H (None) /hpf Disposition Clinical Impression: Adverse reaction to drug Disposition: HOME SELF-CARE Condition: Stable Instructions: Sulfamethoxazole/Trimethoprim (By mouth) Additional Instructions: Please use medication as discussed. Please follow up with family doctor if symptoms have not improved over the next two days. Please return to the emergency room if your symptoms increase or worsen or for any other concerns. Prescriptions: Sulfamethox-Tmp 800-160Mg [Bactrim DS 800-160 mg] 1 each PO Q12HR #14 tab Referrals: Shameka Chaney DO [Primary Care Provider] - 1-2 days Time of Disposition: 02:28
[2016-05-29 01:56] LABS: Basophils # (A) 0.1 k/uL (0-0.2); Basophils % (A) 0 %; CH 32.1; CHCM 34.1; Eosinophils # (A) 0.2 k/uL (0-0.7); Eosinophils % (A) 2 %; HCT 32.4 % (39.0-53.0); HDW 2.51; HGB 11.2 gm/dL (13.0-17.5); Luc # (Auto) 0.21; Luc % (Auto) 2; Lymphocytes # (A) 1.9 k/uL (1.0-4.8); Lymphocytes % (A) 13 %; MCH 32.5 pg (25.0-35.0); MCHC 34.4 g/dL (31.0-37.0); MCV 94.4 fL (80.0-100.0); Mean Platelet Volume 7.4; Monocytes # (A) 0.8 k/uL (0-1.0); Monocytes % (A) 6 %; Neutrophils # (A) 11.1 k/uL (1.3-7.7); Neutrophils % (A) 78 %; RBC 3.43 m/uL (4.30-5.90); RDW 12.4 % (11.5-15.5); WBC 14.3 k/uL (3.8-10.6); WBC (Perox) 14.48
[2016-05-29 02:08] LABS: Appearance,Urine Cloudy (Clear); Bilirubin,Urine Negative (Negative); Glucose,Urine (UA) Negative (Negative); Ketones,Urine Negative (Negative); Leukocyte Esterase,Urine Moderate (Negative); Mucus,Urine Rare /hpf; Nitrite,Urine Negative (Negative); PH, Urine 5.5 (5.0-8.0); Particle Count 4474; Protein,Urine 1+ (Negative); RBC,Urine >182 /hpf (0-5); Specific Gravity,Urine 1.011 (1.001-1.035); UA Billing (MACRO vs. MICRO) MICRO; Urobilinogen,Urine <2.0 mg/dL (<2.0); WBC,Urine 77 /hpf (0-5)
[2016-05-29 02:13] LABS: ALT 37 U/L (21-72); AST 23 U/L (17-59); Alkaline Phosphatase 52 U/L (38-126); Anion Gap 10 mmol/L; Blood Urea Nitrogen 23 mg/dL (9-20); Calcium 8.4 mg/dL (8.4-10.2); Carbon Dioxide 22 mmol/L (22-30); Chloride 107 mmol/L (98-107); Creatine Kinase 64 U/L (55-170); Glucose 110 mg/dL (74-99); Non-African American GFR(MDRD) 55 (>60 ml/min/1.73 sqM); Potassium 4.4 mmol/L (3.5-5.1); Sodium 139 mmol/L (137-145); Total Bilirubin 0.4 mg/dL (0.2-1.3); Total Protein 6.3 g/dL (6.3-8.2)
[2016-05-29 03:04] VITALS: BP 111/70; PULSE 83; TEMP 98.3
== END 2016-05-29 03:04 | disposition home or self-care (01) ==
LOC: EC 01:19
DX: R25.2 Cramp and spasm (principal); T37.8X5A Adverse effect of other specified systemic anti-infectives and antiparasitics, initial encounter; R94.4 Abnormal results of kidney function studies; Z79.890 Hormone replacement therapy; Z79.82 Long term (current) use of aspirin; Z79.899 Other long term (current) drug therapy; Z85.46 Personal history of malignant neoplasm of prostate
CPT/HCPCS: 36415; 80053; 81001; 82550; 85025; 96360; 99283

== ENCOUNTER 2016-06-06 09:02 | Day surgery (SDC) | payer MEDICARE ==
[2016-05-31 09:56] VITALS: BMI 27.7
[~2016-06-06 09:02] MED LIST: DEXAMETHASONE SOD PHOSPHATE 10 MG/ML 1 ML VIAL IV ONE; HYDROmorphone 1 MG/ML 1 ML SYRINGE IVP PRN; LACTATED RINGERS 1,000 ML IV SCH; LIDOCAINE 1% 20 ML VIAL (10MG/ML) FOR IV START INTRADERMA PRN; MIDAZOLAM 2 MG/2 ML VIAL IV PRN; ONDANSETRON 4 MG/2 ML VIAL IVP ONE; Pre Op ABX Message 1 EACH MISC MISCELLANE ONE; SCOPOLAMINE 1.5MG/72HR PATCH TRANSDERM ONE; ceFAZolin 2 GM in SODIUM CHLORIDE 0.9% 100 ML IVPB ONE
[2016-06-06] MEDS ORDERED: LIDOCAINE 1% 20 ML VIAL (10MG/ML) FOR IV START INTRADERMA ONE (09:46)
[2016-06-06] MEDS ORDERED: KETOROLAC 30 MG/ML 1 ML VIAL ONE (11:01)
[2016-06-06] MEDS ORDERED: fentaNYL (PF) 50 MCG/ML 2 ML AMP ONE (11:01)
[2016-06-06] MEDS ORDERED: ceFAZolin 1,000 MG VIAL ONE (11:01)
[2016-06-06] MEDS ORDERED: SUCCINYLCHOLINE CHLORIDE 100 MG/5 ML SYR IV ONE (11:01)
[2016-06-06] MEDS ORDERED: PROPOFOL 10 MG/ML 20 ML VIAL IV ONE (11:01)
[2016-06-06] MEDS ORDERED: SODIUM CHLORIDE 0.9% 100 ML BAG ONE (11:01)
[2016-06-06] MEDS ORDERED: LIDOCAINE 1% INJ 10MG/ML (20 ML MDV) ONE (11:01)
[2016-06-06] MEDS ORDERED: MIDAZOLAM 2 MG/2 ML VIAL ONE (11:01)
[2016-06-06] MEDS ORDERED: LACTATED RINGERS 1,000 ML IV ONE (11:37)
--- NOTE | 2016-06-06 12:06 | FL ---
EXAMINATION TYPE: FL guidance operating room DATE OF EXAM: 06/06/2016 11:55 AM CLINICAL HISTORY: Left-sided kidney stone TECHNIQUE: Fluoroscopy. COMPARISON: None. FINDINGS: Fluoroscopic guidance was provided during kidney stones surgical procedure performed by Dr Elvira Martinez. A total of 4 seconds of fluoroscopic time was utilized during the procedure and 1 spot imag e is acquired. Single image acquired shows ureter access set UVJ with advancement of guidewire. IMPRESSION: As Above.
[2016-06-06 12:45] VITALS: TEMP 97.1
[2016-06-06 14:07] VITALS: BP 117/76; PULSE 72; RESP 18
--- NOTE | 2016-06-06 22:24 | OP ---
DATE OF SERVICE: 06/06/2016 SURGEON: LUIZA ZIEGLER MD PREOPERATIVE DIAGNOSIS: Left ureteral calculus. POSTOPERATIVE DIAGNOSIS: Left ureteral calculus. OPERATION: Cystoscopy with removal of left double-J catheter, left ureteroscopy and removal of left ureteral calculus. ANESTHESIA: General. The patient is a 66-year-old phenotypic male who is in the process of conversion to female who developed left flank pain secondary to a 5 mm mid ureteral calculus on 05/24. The patient developed a fever 3 days later and a double-J catheter was placed due to concerns in regard to urosepsis. Urine culture eventually showed no growth. Cystoscopy with removal of the double-J catheter and calculus is planned. PROCEDURE: The patient was taken to the operating suite, where adequate general anesthesia via orotracheal intubation was instituted. The patient was placed in the dorsal lithotomy position with his legs suspended on padded Angel stirrups. Pneumatic compression stockings were applied to the lower legs. The genitalia was prepped with Betadine solution and draped in a sterile fashion. The penile urethra was traversed under direct vision using the 19 Maltese cystoscope sheath and 30-degree lens. The anterior urethra was free of inflammatory lesion, tumor and stricture. The patient had undergone radical prostatectomy in 04/2016 and the bladder neck appeared wide open. The bladder was examined. Protruding from the left ureteral orifice was the distal coiled end of a double-J catheter. The right ureteral orifice was unremarkable. Using biopsy forceps, the double-J catheter was grasped and pulled out to the urethral meatus. A 0.035 Glidewire was then advanced through the double-J catheter and up to the region of the renal pelvis. The double-J catheter was removed leaving the Glidewire in place. The distal ureter was then dilated to 11 Maltese using the obturator of a 13 Maltese re-entry sheath. The flexible ureteroscope was then advanced over the Glidewire. The ureteroscope was initially advanced up to the region of the kidney. All calyces were examined and no calculi were identified. The ureteroscope was then slowly withdrawn through the ureter and in the pelvic ureter the calculus was identified. The calculus was trapped using a 1.9 Maltese Nitinol stone basket and extracted through the ureter without difficulty with the ureteroscope. The patient tolerated the procedure well and left the operating room awake and in satisfactory condition. There was no blood loss. The patient will be seen back in followup in 2 weeks. PAIGE
== END 2016-06-06 14:19 | disposition home or self-care (01) ==
LOC: OR 09:02
PROVIDERS: ATTEND Urology
DX: N20.1 Calculus of ureter (principal); C61 Malignant neoplasm of prostate; Z79.82 Long term (current) use of aspirin; Z79.899 Other long term (current) drug therapy; Z88.8 Allergy status to other drugs, medicaments and biological substances
CPT/HCPCS: 52352; C1769; J2250; J1100; J2405; J0690; J2001; J3010; J1885; J0330; J2704; 82365

== ENCOUNTER → 2016-06-08 | Outpatient (CLI) | payer MEDICARE | END | disposition home or self-care (01) | LOC: LABWHC1 09:27 | PROVIDERS: ATTEND Urology | DX: C61 Malignant neoplasm of prostate (principal) | CPT/HCPCS: 36415; 84153 ==

== ENCOUNTER → 2017-07-17 | Outpatient (CLI) | payer MEDICARE | END | disposition home or self-care (01) | LOC: LABWHC1 10:50 | PROVIDERS: ATTEND Urology | DX: C61 Malignant neoplasm of prostate (principal) | CPT/HCPCS: 36415; 84153 ==

== ENCOUNTER → 2017-09-23 | Outpatient (CLI) | payer MEDICARE | END | disposition home or self-care (01) | LOC: LABWHC1 11:38 | PROVIDERS: ATTEND Urology | DX: C61 Malignant neoplasm of prostate (principal) | CPT/HCPCS: 36415; 84153 ==

== ENCOUNTER 2020-01-16 14:05 | Inpatient (IN) | payer MEDICARE ==
[2020-01-16] MEDS ORDERED: SODIUM CHLORIDE 0.9% 1,000 ML IV STA (14:45)
[2020-01-16 15:21] LABS: Basophils # (A) 0.1 k/uL (0-0.2); Basophils % (A) 1 %; Eosinophils # (A) 0.1 k/uL (0-0.7); Eosinophils % (A) 1 %; HCT 42.1 % (34.0-46.0); HGB 14.3 gm/dL (11.4-16.0); Lymphocytes # (A) 0.9 k/uL (1.0-4.8); Lymphocytes % (A) 10 %; MCHC 33.9 g/dL (31.0-37.0); MCV 94.4 fL (80.0-100.0); Mean Platelet Volume 8.2; Monocytes # (A) 0.7 k/uL (0-1.0); Monocytes % (A) 7 %; Neutrophils # (A) 7.8 k/uL (1.3-7.7); Neutrophils % (A) 81 %; Platelet Count 198 k/uL (150-450); RBC 4.47 m/uL (3.80-5.40); RDW 12.1 % (11.5-15.5); WBC 9.6 k/uL (3.8-10.6)
[2020-01-16 15:23] LABS: Appearance,Urine Clear (Clear); Bilirubin,Urine Negative (Negative); Blood,Urine Negative (Negative); Color,Urine Yellow; Glucose,Urine (UA) Negative (Negative); Hyaline Casts,Urine 1 /lpf (0-2); Ketones,Urine 1+ (Negative); Leukocyte Esterase,Urine Negative (Negative); Mucus,Urine Moderate /hpf; Nitrite,Urine Negative (Negative); PH, Urine 5.5 (5.0-8.0); Protein,Urine 1+ (Negative); RBC,Urine 2 /hpf (0-5); Specific Gravity,Urine 1.026 (1.001-1.035); Squamous Epithelial Cell,Urine 3 /hpf (0-4); Urobilinogen,Urine <2.0 mg/dL (<2.0); WBC,Urine 2 /hpf (0-5)
--- NOTE | 2020-01-16 15:41 | XR ---
EXAMINATION TYPE: XR chest 2V DATE OF EXAM: 01/16/2020 COMPARISON: NONE HISTORY: Fever TECHNIQUE: 2 views FINDINGS: There is some mild patchy airspace infiltrate right lower lobe. There is small area of girma lar infiltrate left lower lobe. Heart and mediastinum are normal. There are no hilar masses. There is no pleural effusion. There is no heart failure. Bony thorax is intact. IMPRESSION: There is some bilateral lower lobe pneumonia. Normal heart.
[2020-01-16 15:43] LABS: Albumin 4.6 g/dL (3.5-5.0); Potassium 4.6 mmol/L (3.5-5.1); Total Bilirubin 0.7 mg/dL (0.2-1.3); Total Protein 7.5 g/dL (6.3-8.2)
[2020-01-16] MEDS ORDERED: ACETAMINOPHEN TAB 500 MG TAB PO STA (16:01)
[2020-01-16] MEDS ORDERED: AZITHROMYCIN 500 MG in SODIUM CHLORIDE 0.9% 250 ML IVPB STA (16:05)
[2020-01-16] MEDS ORDERED: cefTRIAXone IN SWFI 1,000 MG/10 ML SYRINGE IVP STA (16:05)
--- NOTE | 2020-01-16 16:05 | ED ---
General Adult HPI - General Chief complaint: Abdominal Pain Stated complaint: Abd pain Time Seen by Provider: 01/16/20 14:28 Source: patient Mode of arrival: ambulatory Limitations: no limitations - History of Present Illness Initial comments: 69-year-old male who identifies as a female with a past medical history of hormone replacement therapy, prostate cancer, kidney stones presents to the emergency room for a chief complaint of abdominal pain. Patient reports she has had abdominal pain for the past 1.5 weeks. She does not have any nausea but do es report that cannot eat anything and does not have an appetite. States eating makes her pain worse. She did initially have diarrhea however that has resolved. Patient denies any flank pain. Does report that she has had fevers on and off for the past week and a half as well. No known coronary exposures. Patient has no other complaints at this time including shortness of breath, chest pain, nausea or vomiting, headache, or visual changes. - Related Data Home Medications Medication Instructions Recorded Confirmed Aspirin 81 mg PO DAILY 12/02/15 06/06/16 Estradiol 4 mg PO QAM 05/24/16 06/06/16 Multivit-Min/Iron/Folic Acid/K 1 cap PO DAILY 05/24/16 06/06/16 [Women's Multivatimin] Spironolactone 50 mg PO HS 05/24/16 06/06/16 Spironolactone 100 mg PO QAM 05/24/16 06/06/16 Acetaminophen Tab [Tylenol] 325 - 650 mg PO DIRECTED PRN 05/31/16 06/06/16 Progesterone, Micronized 100 mg PO QAM 05/31/16 06/06/16 [Progesterone] Previous Rx's Medication Instructions Recorded Ketorolac [Toradol] 10 mg PO Q6HR PRN #20 tab 05/24/16 Tamsulosin [Flomax] 0.4 mg PO DAILY #30 cap 05/24/16 Sulfamethox-Tmp 800-160Mg [Bactrim 1 each PO Q12HR #14 tab 05/29/16 DS 800-160 mg] Allergies Allergy/AdvReac Type Severity Reaction Status Date / Time levofloxacin [From Levaquin] Allergy EXTREME Verified 01/16/20 14:27 MUSCLE PAIN Review of Systems ROS Statement: Those systems with pertinent positive or pertinent negative responses have been documented in the HPI. ROS Other: All systems not noted in ROS Statement are negative. Past Medical History Past Medical History: Cancer Additional Past Medical History / Comment(s): HX OF PROSTATE CA, Hormone replacement therapy, HX Kidney stones, CURRENT JJ CATH, RECENT SEPSIS R/T KIDNEY STONE History of Any Multi-Drug Resistant Organisms: None Reported Past Surgical History: Prostate Surgery, Tonsillectomy Additional Past Surgical History / Comment(s): JJ STENT PLACED 05/27/15, prostate cancer-surgery 04/11/2016, Past Anesthesia/Blood Transfusion Reactions: No Reported Reaction Past Psychological History: No Psychological Hx Reported Smoking Status: Never smoker Past Alcohol Use History: None Reported Past Drug Use History: None Reported - Past Family History Father Additional Family Medical History / Comment(s): Prostate Cancer Mother Family Medical History: Cancer Sister(s) Family Medical History: Cancer General Exam Limitations: no limitations General appearance: alert, in no apparent distress Head exam: Present: atraumatic, normocephalic, normal inspection Eye exam: Present: normal appearance, PERRL, EOMI. Absent: scleral icterus, c onjunctival injection, periorbital swelling ENT exam: Present: normal exam, mucous membranes moist Neck exam: Present: normal inspection, full ROM. Absent: tenderness, meningismus, lymphadenopathy Respiratory exam: Present: normal lung sounds bilaterally. Absent: respiratory distress, wheezes, rales, rhonchi, stridor Cardiovascular Exam: Present: regular rate, normal rhythm, normal heart sounds. Absent: systolic murmur, diastolic murmur, rubs, gallop, clicks GI/Abdominal exam: Present: soft, tenderness (Minimal generalized lower abdominal tenderness.), normal bowel sounds. Absent: distended, guarding, rebound, rigid Back exam: Absent: CVA tenderness (R), CVA tenderness (L) Neurological exam: Present: alert Psychiatric exam: Present: normal affect, normal mood Course Vital Signs 01/16/20 01/16/20 01/16/20 14:24 15:26 16:26 Temperature 101.4 F H Pulse Rate 116 H 97 Respiratory 18 18 18 Rate Blood Pressure 140/79 131/80 O2 Sat by Pulse 95 98 Oximetry 01/16/20 16:55 Temperature 99.6 F Pulse Rate Respiratory Rate Blood Pressure O2 Sat by Pulse Oximetry Medical Decision Making - Medical Decision Making Vitals are stable. CBC is unremarkable. CMP does show BUN of 21. Urinalysis is unremarkable. Patient does have 1+ ketones noted. She was given IV fluids. Chest x-ray shows some bilateral lower lobe pneumonia. CT abdomen and pelvis with contrast shows bilateral mild lower lobe pneumonia that is new compared to old exam. Curb 65 recommends inpatient management. At the same patient will be admitted for IV antibiotics. No recent hospitalizations. Coronavirus is pending. Reglan was ordered for nausea rather than Zofran given increase risk of QT prolongation with azithromycin. - Lab Data Result diagrams: 01/16/20 15:09 01/16/20 15:09 Lab Results 01/16/20 01/16/20 01/16/20 Range/Units 15:09 15:09 15:09 WBC 9.6 (3.8-10.6) k/uL RBC 4.47 (3.80-5.40) m/uL Hgb 14.3 (11.4-16.0) gm/dL Hct 42.1 (34.0-46.0) % MCV 94.4 (80.0-100.0) fL MCH 32.0 (25.0-35.0) pg MCHC 33.9 (31.0-37.0) g/dL RDW 12.1 (11.5-15.5) % Plt Count 198 (150-450) k/uL Neutrophils % 81 % Lymphocytes % 10 % Monocytes % 7 % Eosinophils % 1 % Basophils % 1 % Neutrophils # 7.8 H (1.3-7.7) k/uL Lymphocytes # 0.9 L (1.0-4.8) k/uL Monocytes # 0.7 (0-1.0) k/uL Eosinophils # 0.1 (0-0.7) k/uL Basophils # 0.1 (0-0.2) k/uL Sodium 133 L (137-145) mmol/L Potassium 4.6 (3.5-5.1) mmol/L Chloride 99 (98-107) mmol/L Carbon Dioxide 24 (22-30) mmol/L Anion Gap 10 mmol/L BUN 21 H (7-17) mg/dL Creatinine 1.13 H (0.52-1.04) mg/dL Est GFR (CKD-EPI)AfAm 57 (>60 ml/min/1.73 sqM) Est GFR (CKD-EPI)NonAf 50 (>60 ml/min/1.73 sqM) Glucose 125 H (74-99) mg/dL Plasma Lactic Acid Damion (0.7-2.0) mmol/L Calcium 9.0 (8.4-10.2) mg/dL Total Bilirubin 0.7 (0.2-1.3) mg/dL AST 56 H (14-36) U/L ALT 41 H (4-34) U/L Alkaline Phosphatase 78 (38-126) U/L Total Protein 7.5 (6.3-8.2) g/dL Albumin 4.6 (3.5-5.0) g/dL Amylase 51 (30-110) U/L Lipase 135 (23-300) U/L Urine Color Yellow Urine Appearance Clear (Clear) Urine pH 5.5 (5.0-8.0) Ur Specific [place] 1.026 (1.001-1.035) Urine Protein 1+ H (Negative) Urine Glucose (UA) Negative (Negative) Urine Ketones 1+ H (Negative) Urine Blood Negative (Negative) Urine Nitrite Negative (Negative) Urine Bilirubin Negative (Negative) Urine Urobilinogen <2.0 (<2.0) mg/dL Ur Leukocyte Esterase Negative (Negative) Urine RBC 2 (0-5) /hpf Urine WBC 2 (0-5) /hpf Ur Squamous Epith Cells 3 (0-4) /hpf Hyaline Casts 1 (0-2) /lpf Urine Mucus Moderate H (None) /hpf 01/16/20 Range/Units 15:09 WBC (3.8-10.6) k/uL RBC (3.80-5.40) m/uL Hgb (11.4-16.0) gm/dL Hct (34.0-46.0) % MCV (80.0-100.0) fL MCH (25.0-35.0) pg MCHC (31.0-37.0) g/dL RDW (11.5-15.5) % Plt Count (150-450) k/uL Neutrophils % % Lymphocytes % % Monocytes % % Eosinophils % % Basophils % % Neutrophils # (1.3-7.7) k/uL Lymphocytes # (1.0-4.8) k/uL Monocytes # (0-1.0) k/uL Eosinophils # (0-0.7) k/uL Basophils # (0-0.2) k/uL Sodium (137-145) mmol/L Potassium (3.5-5.1) mmol/L Chloride (98-107) mmol/L Carbon Dioxide (22-30) mmol/L Anion Gap mmol/L BUN (7-17) mg/dL Creatinine (0.52-1.04) mg/dL Est GFR (CKD-EPI)AfAm (>60 ml/min/1.73 sqM) Est GFR (CKD-EPI)NonAf (>60 ml/min/1.73 sqM) Glucose (74-99) mg/dL Plasma Lactic Acid Damion 1.0 (0.7-2.0) mmol/L Calcium (8.4-10.2) mg/dL Total Bilirubin (0.2-1.3) mg/dL AST (14-36) U/L ALT (4-34) U/L Alkaline Phosphatase (38-126) U/L Total Protein (6.3-8.2) g/dL Albumin (3.5-5.0) g/dL Amylase (30-110) U/L Lipase (23-300) U/L Urine Color Urine Appearance (Clear) Urine pH (5.0-8.0) Ur Specific [place] (1.001-1.035) Urine Protein (Negative) Urine Glucose (UA) (Negative) Urine Ketones (Negative) Urine Blood (Negative) Urine Nitrite (Negative) Urine Bilirubin (Negative) Urine Urobilinogen (<2.0) mg/dL Ur Leukocyte Esterase (Negative) Urine RBC (0-5) /hpf Urine WBC (0-5) /hpf Ur Squamous Epith Cells (0-4) /hpf Hyaline Casts (0-2) /lpf Urine Mucus (None) /hpf Disposition Clinical Impression: Bilateral pneumonia, Dehydration Disposition: ADMITTED IP TO THIS HOSP Condition: Fair Is patient prescribed a controlled substance at d/c from ED?: No Referrals: Shameka Chaney DO [Primary Care Provider] - 1-2 days Time of Disposition: 16:59
--- NOTE | 2020-01-16 16:24 | CT ---
EXAMINATION TYPE: CT abdomen pelvis w con DATE OF EXAM: 01/16/2020 COMPARISON: 05/24/2016 HISTORY: Nausea and vomiting x2 weeks CT DLP: 901.8 mGycm Automated exposure control for dose reduction was used. CONTRAST: Performed with IV Contrast, patient injected with 100 mL of Isovue 300. There is some patchy airspace infiltrates in the posterior lung bases. There is no pleural effusion. Heart size is normal. There is no pericardial effusion. There are small cysts in the anterior right l obe of the liver that measure up to 1 cm. Bile ducts are not dilated. Gallbladder appears normal. The re is no pancreatic mass. Spleen is intact. Stomach is intact. There is small hiatal hernia. There is no adrenal mass. Kidneys show satisfactory contrast opacification. There is no hydronephrosi s. Ureters are not dilated. There is 3.5 cm cortical cyst anterior right kidney. There is 1 cm cortic al cyst posterior right kidney. There is no retroperitoneal adenopathy. Bladder distends smoothly. Th ere is no inguinal hernia. There are multiple sigmoid diverticula. There is no sign of diverticulitis . Appendix is posterior and appears normal. There is no mesenteric edema. There is no ascites or free air. There is no bowel obstruction. There i s degenerative disc space narrowing at L4-5 L5-S1 with vacuum disc. There is no compression fracture. The bony pelvis is intact. There is hysterectomy. IMPRESSION: No sign of acute abdomen and pelvis. There is clearing of the left renal obstruction compared to old exam. Normal appendix. There is bilateral mild lower lobe pneumonia that is new compared to old exam.
[2020-01-16] MEDS ORDERED: ACETAMINOPHEN TAB 325 MG TAB PO PRN (16:59)
[2020-01-16] MEDS ORDERED: HYDROmorphone 0.5 MG/0.5 ML SYRINGE IVP PRN (16:59)
[2020-01-16] MEDS ORDERED: NALOXONE 0.4 MG/ML 1 ML VIAL IV PRN (16:59)
[2020-01-16] MEDS ORDERED: METOCLOPRAMIDE 5 MG/ML 2 ML VIAL IVP PRN (17:00)
[2020-01-16] MEDS ORDERED: diphenhydrAMINE 50 MG/ML 1 ML VIAL IVP PRN (17:01)
[2020-01-16] MEDS ORDERED: PANTOPRAZOLE 40 MG/10 ML VIAL IVP STA (17:02)
[2020-01-16] MEDS: SODIUM CHLORIDE 0.9% 1,000 ML IV SCH (17:19)
--- NOTE | 2020-01-17 07:13 | P.HPIM ---
History of Present Illness H&P Date: 01/16/20 69-year-old male who identifies as a female with a past medical history of hormone replacement therapy, prostate cancer, kidney stones presents to the emergency room for a chief complaint of abdominal pain. Patient reports she has had abdominal pain for the past 1.5 weeks. She does not have any nausea but does report that cannot eat anything and does not have an appetite. States eating makes her pain worse. She did initially have diarrhea however that has resolved. Patient also comparing of Carolyne's body aches. Patient denies any flank pain. Does report that she has had fevers on and off for the past week and a half as well. No known coronary exposures. Patient has no other complaints at this time including shortness of breath, chest pain, nausea or vomiting, headache, or visual changes. Patient had a computed tomography scan of the abdomen and pelvis which showed some nonspecific infiltrate in the lungs. Patient had fever here. Patient denied any significant cough. Coronary stressing was ordered. Patient denied any symptoms of dysuria or increased urinary frequency. Review of Systems REVIEW OF SYSTEMS: CONSTITUTIONAL: No fever, no malaise, no fatigue. HEENT: No recent visual problems or hearing problems. Denied any sore throat. CARDIOVASCULAR: No chest pain, orthopnea, PND, no palpitations, no syncope. PULMONARY: No shortness of breath, no cough, no hemoptysis. GASTROINTESTINAL: As mentioned in HPI NEUROLOGICAL: No headaches, no weakness, no numbness. HEMATOLOGICAL: Denies any bleeding or petechiae. GENITOURINARY: Denies any burning micturition, frequency, or urgency. MUSCULOSKELETAL/RHEUMATOLOGICAL: Denies any joint pain, swelling, or any muscle pain. ENDOCRINE: Denies any polyuria or polydipsia. The rest of the 14-point review of systems is negative. Past Medical History Past Medical History: Cancer Additional Past Medical History / Comment(s): HX OF PROSTATE CA, Hormone replacement therapy, HX Kidney stones, CURRENT JJ CATH, RECENT SEPSIS R/T KIDNEY STONE History of Any Multi-Drug Resistant Organisms: None Reported Past Surgical History: Prostate Surgery, Tonsillectomy Additional Past Surgical History / Comment(s): JJ STENT PLACED 05/27/15, prostate cancer-surgery 04/11/2016, Past Anesthesia/Blood Transfusion Reactions: No Reported Reaction Past Psychological History: No Psychological Hx Reported Smoking Status: Never smoker Past Alcohol Use History: None Reported Past Drug Use History: None Reported - Past Family History Father Additional Family Medical History / Comment(s): Prostate Cancer Mother Family Medical History: Cancer Sister(s) Family Medical History: Cancer Medications and Allergies Home Medications Medication Instructions Recorded Confirmed Type Estradiol 2 mg PO TID 05/24/16 01/16/20 History Spironolactone 50 mg PO TID 05/24/16 01/16/20 History Allergies Allergy/AdvReac Type Severity Reaction Status Date / Time levofloxacin [From Levaquin] AdvReac EXTREME Verified 01/16/20 17:27 MUSCLE PAIN Physical Exam Vitals: Vital Signs Temp Pulse Pulse Pulse Resp BP BP 01/17/20 01:35 98.6 F 87 20 111/71 01/16/20 23:14 18 01/16/20 19:07 18 01/16/20 18:52 98.5 F 84 20 113/73 01/16/20 18:01 99.2 F 93 18 124/79 01/16/20 17:33 99.6 F 92 18 124/77 01/16/20 17:00 99.6 F 92 18 124/77 01/16/20 16:55 99.6 F 01/16/20 16:26 97 18 131/80 01/16/20 15:26 18 01/16/20 14:24 101.4 F H 116 H 18 140/79 Pulse Ox 01/17/20 01:35 96 01/16/20 23:14 01/16/20 19:07 01/16/20 18:52 94 L 01/16/20 18:01 95 01/16/20 17:33 98 01/16/20 17:00 98 01/16/20 16:55 01/16/20 16:26 98 01/16/20 15:26 01/16/20 14:24 95 Intake and Output 01/16/20 01/17/20 01/17/20 22:59 06:59 14:59 Intake Total 600 Balance 600 Intake: Intake, IV Titration 600 Amount Sodium Chloride 0.9% 1, 600 000 ml @ 75 mls/hr IV . [id number] [facility] Rx#:[id number] Other: Voiding Method Toilet Toilet # Voids 1 1 Weight 78.925 kg PHYSICAL EXAMINATION: GENERAL: The patient is alert and oriented x3, not in any acute distress. Well developed, well nourished. HEENT: Pupils are round and equally reacting to light. EOMI. No scleral icterus. No conjunctival pallor. Normocephalic, atraumatic. No pharyngeal erythema. No thyromegaly. CARDIOVASCULAR: S1 and S2 present. No murmurs, rubs, or gallops. PULMONARY: Chest is clear to auscultation, no wheezing or crackles. ABDOMEN: Soft, nontender, nondistended, normoactive bowel sounds. No palpable organomegaly. MUSCULOSKELETAL: No joint swelling or deformity. EXTREMITIES: No cyanosis, clubbing, or pedal edema. NEUROLOGICAL: Gross neurological examination did not reveal any focal deficits. SKIN: No rashes. Results CBC & Chem 7: 01/16/20 15:01/16/20 15: Labs: Abnormal Lab Results - Last 24 Hours (Table) 01/16/20 01/16/20 01/16/20 Range/Units 15: 15: 15:09 Neutrophils # 7.8 H (1.3-7.7) k/uL Lymphocytes # 0.9 L (1.0-4.8) k/uL Sodium 133 L (137-145) mmol/L BUN 21 H (7-17) mg/dL Creatinine 1.13 H (0.52-1.04) mg/dL Glucose 125 H (74-99) mg/dL AST 56 H (14-36) U/L ALT 41 H (4-34) U/L Urine Protein 1+ H (Negative) Urine Ketones 1+ H (Negative) Urine Mucus Moderate H (None) /hpf Thrombosis Risk Factor Assmnt - Choose All That Apply Any of the Below Risk Factors Present?: Yes Each Factor Represents 1 point: Obesity (BMI >25), Serious lung disease incl. pneumonia (< 1month) Other Risk Factors: Yes Each Risk Factor Represents 2 Points: Age 61-74 years Other congenital or acquired thrombophilia - If yes, enter type in comment: No Thrombosis Risk Factor Assessment Total Risk Factor Score: 4 Thrombosis Risk Factor Assessment Level: Moderate Risk Assessment and Plan Plan: -Systemic inflammatory response syndrome or sepsis along with diarrhea: Patient may have viral gastroenteritis. There is some nonspecific infiltrate on the chest x-ray there is no appears lobar infiltrate on a bronchogram. Rotavirus need to be ruled out patient may have either viral pneumonia or atypical pneumonia as per computed tomography scan of the chest. Patient did have fever although pneumonia is not impressive in good and continue the antibiotics for now. Probably we may need to repeat the chest x-ray. Possible atypical pneumonia -Possibility of gastritis -Patient on hormone replacement therapy as a part of his sex change -Hyperemic hyponatremia patient will be continued on IV fluids. DVT prophylaxis early ambulation
[2020-01-17 08:38] LABS: Calcium 8.2 mg/dL (8.4-10.2); Potassium 4.5 mmol/L (3.5-5.1)
[2020-01-17] MEDS: AZITHROMYCIN 500 MG TAB PO SCH (08:42)
[2020-01-17] MEDS: SODIUM CHLORIDE 0.9% 1,000 ML IV SCH ×2 (08:49→19:51)
[2020-01-17] MEDS ORDERED: PANTOPRAZOLE 40 MG/10 ML VIAL IVP SCH (09:00)
--- NOTE | 2020-01-17 09:31 | CT ---
EXAMINATION TYPE: CT angio chest DATE OF EXAM: 01/17/2020 9:17 AM COMPARISON: None HISTORY: PE, elevated d dimer CT DLP: 302.5 mGycm Automated exposure control for dose reduction was used. CONTRAST: CTA scan of the thorax is performed with IV Contrast, patient injected with 80 mL of Isovue 370, pulm onary embolism protocol. . FINDINGS: LUNGS: Subsegmental changes seen bilaterally with patchy somewhat nodular infiltrates most typical of an infectious or inflammatory etiology with no sizable pleural effusion or pneumothorax. Correlate f or multifocal pneumonia. Viral pneumonia would also be in the differential diagnosis. MEDIASTINUM: There is satisfactory enhancement of the pulmonary artery and its branches, there is no CT evidence for pulmonary embolism. There are no greater than 1 cm hilar or mediastinal lymph nodes. No pericardial effusion is seen. OTHER: Hypodensities within the liver too small to characterize. Bilateral nodularity and thickening of the adrenal glands. Small hiatal hernia. Hypertrophic and degenerative change of the spine. IMPRESSION: 1. No diagnostic evidence of pulmonary embolism. 2. Patchy bilateral multifocal nodular areas of infiltrate correlate for developing multifocal pneumo maria de jesus or pneumonitis. Viral pneumonia and hypersensitivity pneumonitis would be in the differential dustin gnosis. 3. Subcentimeter hypodensities within the liver too small to characterize
--- NOTE | 2020-01-17 09:34 | P.PN ---
Subjective 69-year-old male who identifies as a female with a past medical history of hormone replacement therapy, prostate cancer, kidney stones presents to the emergency room for a chief complaint of abdominal pain. Patient reports she has had abdominal pain for the past 1.5 weeks. She does not have any nausea but does report that cannot eat anything and does not have an appetite. States eating makes her pain worse. She did initially have diarrhea however that has resolved. Patient also comparing of Carolyne's body aches. Patient denies any flank pain. Does report that she has had fevers on and off for the past week and a half as well. No known coronary exposures. Patient has no other complaints at this time including shortness of breath, chest pain, nausea or vomiting, headache, or visual changes. Patient had a computed tomography scan of the abdomen and pelvis which showed some nonspecific infiltrate in the lungs. Patient had fever here. Patient denied any significant cough. Coronary stressing was ordered. Patient denied any symptoms of dysuria or increased urinary frequency. 01/17/2020 Patient says he is still not doing well and unable to tolerate diet very well and he feels that his stomach is full. I'll consult gastroenterology for this reason. Patient doesn't have any lobar infiltrate patient may have viral or atypical pneumonia for which I'll continue with azithromycin and Rocephin is not tested at this time. Covid 19 testing is still pending Constitutional: Denied any fatigue denied any fever. Cardio vascular: denied any chest pain, palpitations Gastrointestinal as mentioned in HPI Pulmonary: Denied any shortness of breath cough Neurologic denied any new focal deficits All inpatient medications were reviewed and appropriate changes in these medications as dictated in the interval history and assessment and plan. Objective - Vital Signs Vital signs: Vital Signs Temp 99.2 F 01/17/20 07:00 Pulse 90 01/17/20 07:00 Resp 18 01/17/20 07:00 BP 109/69 01/17/20 07:00 Pulse Ox 96 01/17/20 07:00 Intake & Output 01/16/20 01/17/20 01/17/20 18:59 06:59 18:59 Intake Total 600 Balance 600 Weight 78.925 kg Intake: Intake, IV Titration 600 Amount Sodium Chloride 0.9% 1, 600 000 ml @ 75 mls/hr IV . [id number] [facility] Rx#:[id number] Other: Voiding Method Toilet # Voids 1 - Exam PHYSICAL EXAMINATION: GENERAL: The patient is alert and oriented x3, not in any acute distress. Well developed, well nourished. HEENT: Pupils are round and equally reacting to light. EOMI. No scleral icterus. No conjunctival pallor. Normocephalic, atraumatic. No pharyngeal erythema. No thyromegaly. CARDIOVASCULAR: S1 and S2 present. No murmurs, rubs, or gallops. PULMONARY: Chest is clear to auscultation, no wheezing or crackles. ABDOMEN: Soft, nontender, nondistended, normoactive bowel sounds. No palpable organomegaly. MUSCULOSKELETAL: No joint swelling or deformity. EXTREMITIES: No cyanosis, clubbing, or pedal edema. NEUROLOGICAL: Gross neurological examination did not reveal any focal deficits. SKIN: No rashes. - Labs CBC & Chem 7: 01/16/20 15:09 01/17/20 07:12 Labs: Abnormal Lab Results - Last 24 Hours (Table) 01/16/20 01/16/20 01/16/20 Range/Units 15:09 15:09 15:09 Neutrophils # 7.8 H (1.3-7.7) k/uL Lymphocytes # 0.9 L (1.0-4.8) k/uL D-Dimer (<0.60) mg/L FEU Sodium 133 L (137-145) mmol/L BUN 21 H (7-17) mg/dL Creatinine 1.13 H (0.52-1.04) mg/dL Glucose 125 H (74-99) mg/dL Calcium (8.4-10.2) mg/dL AST 56 H (14-36) U/L ALT 41 H (4-34) U/L Lactate Dehydrogenase (313-618) U/L Urine Protein 1+ H (Negative) Urine Ketones 1+ H (Negative) Urine Mucus Moderate H (None) /hpf 01/17/20 01/17/20 01/17/20 Range/Units 07:12 07:12 07:12 Neutrophils # (1.3-7.7) k/uL Lymphocytes # (1.0-4.8) k/uL D-Dimer 1.64 H (<0.60) mg/L FEU Sodium 136 L (137-145) mmol/L BUN (7-17) mg/dL Creatinine (0.52-1.04) mg/dL Glucose 105 H (74-99) mg/dL Calcium 8.2 L (8.4-10.2) mg/dL AST (14-36) U/L ALT (4-34) U/L Lactate Dehydrogenase 795 H (313-618) U/L Urine Protein (Negative) Urine Ketones (Negative) Urine Mucus (None) /hpf Assessment and Plan Plan: -Systemic inflammatory response syndrome or sepsis along with diarrhea: Patient may have viral gastroenteritis. There is some nonspecific infiltrate on the chest x-ray there is no appears lobar infiltrate on a bronchogram. Possibility of viral pneumonia or atypical pneumonia cannot be ruled out continue with azithromycin was agreeable to discontinued. Patient has elevated d-dimer I will obtain a CT angios the chest to rule out any pulmonary embolism that was reviewed is a better picture of the infiltrate in the lung as well. Need to rule out covid 19 -Possibility of gastritis patient has feeling of fullness in the stomach and believes he is unable to tolerate the right well, gastroneurology will be consulted for possible upper GI endoscopy CAT scan of the abdomen is within normal limits -Patient on hormone replacement therapy as a part of his sex change -Hypovolemic hyponatremia patient will be continued on IV fluids. DVT prophylaxis early ambulation
[2020-01-17] MEDS ORDERED: guaiFENesin SYRUP 100MG/5ML 200 MG/10 ML CUP PO PRN (19:31)
--- NOTE | 2020-01-17 19:47 | P.CONS ---
History of Present Illness - Reason for Consult Consult date: 01/17/20 decreased oral intake Requesting physician: Beena Mohr - Chief Complaint abdominal discomfort and decreased oral intake - History of Present Illness At the time of consultation testing for the dori rotavirus was still pending and consultation was performed using the telephone from 10:50 AM until 10:56 AM 6 minutes in duration. The patient consented to atelephone consult Will defer physical exam to the primary team as later in the day the patient's testing came back positive. 69-year-old patient with a medical history significant for prostate cancer, nephrolithiasis who presented to the hospital due to complaints of abdominal pain and decreased oral intake. The patient reported approximately 10 days of decreased oral intake. The patient reports a poor appetite and difficulty tolerating food as there experiencing some vague epigastric abdominal discomfort and the sensation of a full stomach. No issues with similar complaints prior to this. No history of reflux disease. No excessive NSAID use. No prior EGDs reported. Last colonoscopy believes to be within the past 5 years.aboratory evaluation significant for hemoglobin 14.3, platelet count 90,000, WBC 9.6, amylase 51, lipase 135, total bilirubin 0.7, alkaline phosphatase 78,AST 56 and ALT 41. Review of Systems REVIEW OF SYSTEMS: CONSTITUTIONAL: Denies any fevers, chills, weight change or fatigue. CARDIOVASCULAR: Denies any chest pain, palpitations high or low blood pressures RESPIRATORY: Denies any shortness of breath, hemoptysis or cough. GENITOURINARY: No dysuria or hematuria. MUSCULOSKELETAL: No weakness reported. SKIN: Denies any new rashes or lesions, jaundice or pallor. PSYCHIATRIC: Denies any depression or anxiety. NEUROLOGY: Denies headache, denies any new focal deficits. EARS/NOSE/THROAT: No recent hearing change, congestion, nasal discharge or sore throat. EYES: No pain in eyes, discharge or change in vision. GASTROINTESTINAL: As per HPI. Past Medical History Past Medical History: Cancer Additional Past Medical History / Comment(s): HX OF PROSTATE CA, Hormone replacement therapy, HX Kidney stones, CURRENT JJ CATH, RECENT SEPSIS R/T KIDNEY STONE History of Any Multi-Drug Resistant Organisms: None Reported Past Surgical History: Prostate Surgery, Tonsillectomy Additional Past Surgical History / Comment(s): JJ STENT PLACED 05/27/15, prostate cancer-surgery 04/11/2016, Past Anesthesia/Blood Transfusion Reactions: No Reported Reaction Past Psychological History: No Psychological Hx Reported Smoking Status: Never smoker Past Alcohol Use History: None Reported Past Drug Use History: None Reported - Past Family History Father Additional Family Medical History / Comment(s): Prostate Cancer Mother Family Medical History: Cancer Sister(s) Family Medical History: Cancer Medications and Allergies Home Medications Medication Instructions Recorded Confirmed Type Estradiol 2 mg PO TID 05/24/16 01/16/20 History Spironolactone 50 mg PO TID 05/24/16 01/16/20 History Allergies Allergy/AdvReac Type Severity Reaction Status Date / Time levofloxacin [From Levaquin] AdvReac EXTREME Verified 01/16/20 17:27 MUSCLE PAIN Physical Exam Vitals: Vital Signs Temp Pulse Pulse Pulse Resp BP BP 01/17/20 08:42 18 01/17/20 07:00 99.2 F 90 18 109/69 01/17/20 01:35 98.6 F 87 20 111/71 01/16/20 23:14 18 01/16/20 19:07 18 01/16/20 18:52 98.5 F 84 20 113/73 01/16/20 18:01 99.2 F 93 18 124/79 01/16/20 17:33 99.6 F 92 18 124/77 01/16/20 17:00 99.6 F 92 18 124/77 01/16/20 16:55 99.6 F 01/16/20 16:26 97 18 131/80 01/16/20 15:26 18 01/16/20 14:24 101.4 F H 116 H 18 140/79 Pulse Ox 01/17/20 08:42 01/17/20 07:00 96 01/17/20 01:35 96 01/16/20 23:14 01/16/20 19:07 01/16/20 18:52 94 L 01/16/20 18:01 95 01/16/20 17:33 98 01/16/20 17:00 98 01/16/20 16:55 01/16/20 16:26 98 01/16/20 15:26 01/16/20 14:24 95 Intake and Output 01/16/20 01/17/20 01/17/20 22:59 06:59 14:59 Intake Total 600 Balance 600 Intake: Intake, IV Titration 600 Amount Sodium Chloride 0.9% 1, 600 000 ml @ 75 mls/hr IV . [id number] [facility] Rx#:[id number] Other: Voiding Method Toilet Toilet Toilet # Voids 1 1 Weight 78.925 kg no physical exam was performed as the patient was suspected of having coronavirus, which was confirmed later in the day. We'll defer the physical exam to the primary team. Results CBC & Chem 7: 01/16/20 15:09 01/17/20 07:12 Labs: Abnormal Lab Results - Last 24 Hours (Table) 01/16/20 01/16/20 01/16/20 Range/Units 15:09 15:09 15:09 Neutrophils # 7.8 H (1.3-7.7) k/uL Lymphocytes # 0.9 L (1.0-4.8) k/uL D-Dimer (<0.60) mg/L FEU Sodium 133 L (137-145) mmol/L BUN 21 H (7-17) mg/dL Creatinine 1.13 H (0.52-1.04) mg/dL Glucose 125 H (74-99) mg/dL Calcium (8.4-10.2) mg/dL AST 56 H (14-36) U/L ALT 41 H (4-34) U/L Lactate Dehydrogenase (313-618) U/L Urine Protein 1+ H (Negative) Urine Ketones 1+ H (Negative) Urine Mucus Moderate H (None) /hpf 01/17/20 01/17/20 01/17/20 Range/Units 07:12 07:12 07:12 Neutrophils # (1.3-7.7) k/uL Lymphocytes # (1.0-4.8) k/uL D-Dimer 1.64 H (<0.60) mg/L FEU Sodium 136 L (137-145) mmol/L BUN (7-17) mg/dL Creatinine (0.52-1.04) mg/dL Glucose 105 H (74-99) mg/dL Calcium 8.2 L (8.4-10.2) mg/dL AST (14-36) U/L ALT (4-34) U/L Lactate Dehydrogenase 795 H (313-618) U/L Urine Protein (Negative) Urine Ketones (Negative) Urine Mucus (None) /hpf CT scan - abdomen: report reviewed (computed tomography scan of the abdomen with no acute intra-abdominal pathology noted) Assessment and Plan (1) Abdominal pain Narrative/Plan: 69-year-old patient with a medical history significant for nephrolithiasis who presented due to abdominal pain and decreased oral intake. 10 days of abdominal pain described as epigastricuncomfortable feeling as well as the sensation of a full stomach with associated decreased oral intake and weight loss. No history of peptic ulcer disease, GERD, excessive NSAID use or prior need for EGD. Colonoscopy less than 5 years ago. Computed tomography scan of the abdomen negative for any acute intra-abdominal pathology. Patient subsequently tested positive for Coronavirus with suspicion that symptoms are related to the virus. 2 agree with maintaining the patient on PPI therapy for possible reflux although the patient denies any history of GERD. Current Visit: No Status: Acute Code(s): R10.9 - UNSPECIFIED ABDOMINAL PAIN SNOMED Code(s): 91908332 Plan: supportive care Okay for diet continue Protonix therapy Initially tentative plan was for endoscopy, however will hold off due to acute viral illness Continue other medical management per primary team Thank you for allowing us to participate in the care of the patient
[2020-01-18 08:33] LABS: Calcium 7.5 mg/dL (8.4-10.2); Potassium 4.2 mmol/L (3.5-5.1)
[2020-01-18] MEDS ORDERED: PANTOPRAZOLE 40 MG TABLET PO SCH ×2 (09:00)
[2020-01-18] MEDS: AZITHROMYCIN 500 MG TAB PO SCH (09:21)
[2020-01-18] MEDS: SODIUM CHLORIDE 0.9% 1,000 ML IV SCH ×2 (09:22→15:21)
[2020-01-18] MEDS: PANTOPRAZOLE 40 MG TABLET PO SCH ×2 (09:22→16:33)
--- NOTE | 2020-01-18 12:26 | P.PN ---
Subjective Progress Note Date: 01/18/20 This is a 69-year-old admitted with nausea vomiting, abdominal pain of 10 days and multiple other medical issues. Significant clinical improvement on IV fluid hydration, IV antibiotics. Diet advanced to regular, tolerating well with no further nausea vomiting or abdominal pain. Feels better but complains of generalized fatigue/weakness. Denies chest pain, palpitations or shortness of breath. Evaluated by GI with outpatient endoscopy recommended secondary to patient testing positive for coronavirus. T-max 99.2. Objective - Vital Signs Vital signs: Vital Signs Temp 99.1 F 01/18/20 07:00 Pulse 89 01/18/20 07:00 Resp 16 01/18/20 07:00 BP 130/76 01/18/20 07:00 Pulse Ox 95 01/18/20 07:00 Intake & Output 01/17/20 01/18/20 01/18/20 18:59 06:59 18:59 Intake Total 525 600 400 Balance 525 600 400 Intake: Intake, IV Titration 525 600 Amount Sodium Chloride 0.9% 1, 525 600 000 ml @ 75 mls/hr IV . [id number] [facility] Rx#:[id number] Oral 400 Other: Voiding Method Toilet Toilet Toilet # Voids 1 - Exam GENERAL: Sitting up in bed, alert and oriented x3, no acute distress. HEENT: Pupils are round and equally reacting to light. EOMI. No scleral icterus. No conjunctival pallor. Normocephalic, atraumatic. No pharyngeal erythema. No thyromegaly. CARDIOVASCULAR: S1 and S2 present. No murmurs, rubs, or gallops. PULMONARY: Chest is clear to auscultation, no wheezing or crackles. ABDOMEN: Soft, nontender, nondistended, normoactive bowel sounds. No palpable organomegaly. EXTREMITIES: No cyanosis, clubbing, or pedal edema. NEUROLOGICAL: Gross neurological examination did not reveal any focal deficits. SKIN: Warm and dry, No rashes. - Labs CBC & Chem 7: 01/16/20 15:09 01/18/20 07:05 Labs: Abnormal Lab Results - Last 24 Hours (Table) 01/16/20 01/18/20 Range/Units 15:09 07:05 Calcium 7.5 L (8.4-10.2) mg/dL Coronavirus (PCR) Detected H (Not Detected) Microbiology - Last 24 Hours (Table) 01/16/20 15:09 Blood Culture - Preliminary Blood No Growth after 24 hours Assessment and Plan Assessment: Sepsis secondary to Possible acute developing multifocal pneumonia, positive coronavirus, possible viral gastroenteritis, gastritis. Subcentimeter hypodensities within the liver, incidental finding reported per CTA Abdominal pain of 10 days accompanied by nausea and vomiting, computed tomography scan reportedly negative for acute intra-abdominal pathology, symptoms probably related to virus, Possible gastroesophageal reflux disease Hypovolemic hyponatremia, resolved Plan: Continue on current medication regime , PPI, monitoring and symptomatic treatment. Increase ambulation as tolerated. Evaluated by GI with recommendations noted and appreciated. Outpatient endoscopy recommended in lieu of acute viral illness. Maintain supportive care. Discharge planning in progress for tomorrow. The impression and plan of care has been dictated as directed. : I performed a history and examination of this patient, discussed the same with the dictator. I agree with the dictator's note ,documented as a scribe. Any additional findings or plans will be noted.
--- NOTE | 2020-01-18 15:19 | P.PN ---
Subjective Progress Note Date: 01/18/20 Principal diagnosis: Abdominal pain and decreased oral intake Evaluation of patient was done over the phone. Patient denies any abdominal pain, nausea, or vomiting. Patient states she is feeling much better today. Objective - Vital Signs Vital signs: Vital Signs Temp 99.1 F 01/18/20 07:00 Pulse 89 01/18/20 07:00 Resp 16 01/18/20 07:00 BP 130/76 01/18/20 07:00 Pulse Ox 95 01/18/20 07:00 Intake & Output 01/17/20 01/18/20 01/18/20 18:59 06:59 18:59 Intake Total 525 600 400 Balance 525 600 400 Intake: Intake, IV Titration 525 600 Amount Sodium Chloride 0.9% 1, 525 600 000 ml @ 75 mls/hr IV . [id number] [facility] Rx#:[id number] Oral 400 Other: Voiding Method Toilet Toilet Toilet # Voids 1 - Exam Deferred - Labs CBC & Chem 7: 01/16/20 15:09 01/18/20 07:05 Labs: Abnormal Lab Results - Last 24 Hours (Table) 01/16/20 01/18/20 Range/Units 15:09 07:05 Calcium 7.5 L (8.4-10.2) mg/dL Coronavirus (PCR) Detected H (Not Detected) Microbiology - Last 24 Hours (Table) 01/16/20 15:09 Blood Culture - Preliminary Blood No Growth after 24 hours Assessment and Plan Assessment: (1) Abdominal pain Narrative/Plan: 69-year-old patient with a medical history significant for nephrolithiasis who presented due to abdominal pain and decreased oral intake. 10 days of abdominal pain described as epigastricuncomfortable feeling as well as the sensation of a full stomach with associated decreased oral intake and weight loss. No history of peptic ulcer disease, GERD, excessive NSAID use or prior need for EGD. Colonoscopy less than 5 years ago. Computed tomography scan of the abdomen negative for any acute intra-abdominal pathology. Patient subsequently tested positive for Coronavirus with suspicion that symptoms are related to the virus. 2 agree with maintaining the patient on PPI therapy for possible reflux although the patient denies any history of GERD. Current Visit: No Status: Acute Code(s): R10.9 - UNSPECIFIED ABDOMINAL PAIN SNOMED Code(s): 09415870 Plan: supportive care Okay for diet continue Protonix therapy Initially tentative plan was for endoscopy, however will hold off due to acute viral illness, coronavirus positive Continue other medical management per primary team Thank you for allowing us to participate in the care of the patient The impression and plan of care has been dictated as directed. I performed a history and examination of this patient, discussed the same with the dictator. I agree with the dictator's note ,documented as a scribe. Any additional findings or plans will be noted.
[2020-01-19 07:19] VITALS: BP 130/67; PULSE 88; RESP 16; TEMP 98.4
[2020-01-19] MEDS: SODIUM CHLORIDE 0.9% 1,000 ML IV SCH (07:47)
[2020-01-19] MEDS: PANTOPRAZOLE 40 MG TABLET PO SCH (07:48)
[2020-01-19] MEDS: AZITHROMYCIN 500 MG TAB PO SCH (07:48)
--- NOTE | 2020-01-19 11:07 | P.DS ---
Providers Date of admission: 01/16/20 17:20 Expected date of discharge: 01/19/20 Attending physician: Adalid Jernigan MD Consults: 01/17/20 08:26 Consult Physician Routine Consulting Provider: Fritz Nicole Consult Reason/Comments: Difficulty swallowing food, unable to meet nutrtional needs Do you want consulting provider notified?: Yes Primary care physician: Shameka Chaney Hospital Course: Final Diagnoses: Sepsis secondary to Possible acute developing multifocal pneumonia, positive coronavirus, possible viral gastroenteritis, gastritis. Subcentimeter hypodensities within the liver, incidental finding reported per CTA Abdominal pain of 10 days accompanied by nausea and vomiting, computed tomography scan reportedly negative for acute intra-abdominal pathology, symp toms probably related to virus, Possible gastroesophageal reflux disease Hypovolemic hyponatremia, resolved Hospital course:This is a 69-year-old admitted with nausea vomiting, abdominal pain of 10 days and multiple other medical issues. Significant clinical improvement on IV fluid hydration, IV antibiotics. Diet advanced to regular, tolerating well with no further nausea vomiting or abdominal pain. Feels better but complains of generalized fatigue/weakness. Denies chest pain, palpitations or shortness of breath. Evaluated by GI with outpatient endoscopy recommended secondary to patient testing positive for coronavirus. T-max 99.2. Significant clinical improvement. Cleared by GI for discharge. Denies nausea vomiting or diarrhea. Denies chest pain, palpitations or shortness of breath. Occasional cough. Completed antibiotic therapy. Patient is being discharged home in a stable condition with guarded prognosis. The impression and plan of care has been dictated as directed. : I performed a history and examination of this patient, discussed the same with the dictator. I agree with the dictator's note ,documented as a scribe. Any additional findings or plans will be noted. Patient Condition at Discharge: Stable Plan - Discharge Summary Discharge Rx Participant: Yes New Discharge Prescriptions: New guaiFENesin SYRUP 100MG/5ML [Robitussin] 200 mg PO Q6H PRN ml PRN Reason: Cough Pantoprazole Sodium [Protonix] 40 mg PO BID #42 tablet. No Action Spironolactone 50 mg PO TID Estradiol 2 mg PO TID Discharge Medication List Estradiol 2 mg PO TID 05/24/16 [History] Spironolactone 50 mg PO TID 05/24/16 [History] Pantoprazole Sodium [Protonix] 40 mg PO BID #42 tablet. 01/19/20 [Rx] guaiFENesin SYRUP 100MG/5ML [Robitussin] 200 mg PO Q6H PRN ml 01/19/20 [Rx] Follow up Appointment(s)/Referral(s): Adalid Jernigan MD [Family Provider] - 1 Week Fritz Nicole MD [STAFF PHYSICIAN] - 2 Weeks
== END 2020-01-19 13:17 | disposition home or self-care (01) | DRG 871 ==
LOC: EC 14:05 → 4SSUR 17:20
PROVIDERS: ADMIT Family Medicine; ATTEND Family Medicine
DX: A41.89 Other specified sepsis (principal); U07.1 COVID-19; J12.89 Other viral pneumonia; E87.1 Hypo-osmolality and hyponatremia; A08.39 Other viral enteritis; N17.9 Acute kidney failure, unspecified; E86.1 Hypovolemia; E86.0 Dehydration; K76.9 Liver disease, unspecified; R13.10 Dysphagia, unspecified; E66.9 Obesity, unspecified; Z68.27 Body mass index [BMI] 27.0-27.9, adult; Z79.890 Hormone replacement therapy; Z87.442 Personal history of urinary calculi; Z79.899 Other long term (current) drug therapy; Z79.82 Long term (current) use of aspirin; Z90.89 Acquired absence of other organs; Z88.1 Allergy status to other antibiotic agents; K21.9 Gastro-esophageal reflux disease without esophagitis; Z85.89 Personal history of malignant neoplasm of other organs and systems; Z80.42 Family history of malignant neoplasm of prostate
CPT/HCPCS: 36415; 71046; 71275; 74177; 80048; 80053; 81001; 82150; 83605; 83615; 83690; 85025; 85379; 87040; 96361; 96365; 96375; 99285